=== PATIENT | male | born 1980 | race Hispanic/Latino ===

== ENCOUNTER 2018-07-14 23:20 | Emergency (ER) | payer OTHER, SELFPAY ==
--- OUTSIDE RECORDS SUMMARY | 2018-07-14 23:25 | XMS REPORT | Continuity of Care Document ---
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 suggestive of muscular hypertrophy. No adjacent inflammatory changes to suggest acute diverticulitis. Colonoscopy or enema exam may be performed for complete assessment. SL: [id number] BLOOD BANK Antibody Negative 12/03 RESULTS Scrn [facility] (12/03/17 7:06 AM) BLOOD BANK ABO/Rh A POS 12/03 RESULTS /2017 [facility] CARDIAC Troponin-I null 0.00 - 12/03 ENZYMES 0.40 /2017 [facility] ELECTROLYT AGAP 15.3 meq/L 10.0 - 12/03 ES 20.0 /2017 [facility] ELECTROLYT eGFR 100 12/03 Result Comment: The eGFR is calculated using the CKD-EPI formula. In most young, healthy individuals the eGFR will be >90 mL/ min/1.73m2. The eGFR declines with age. An eGFR of 60-89 may be normal in ES mL/min/1.7 2018 some populations, particularly the elderly, for whom the CKD-EPI formula has not been extensively validated. Use of the eGFR is not recommended in the following populations: [facility] 3m2 Individuals with unstable creatinine concentrations, including patients and those with serious co-morbid conditions. Patients with extremes in muscle mass or diet. The data above are obtained from the National Kidney Disease Education Program (NKDEP) which additionally recommends that when the eGFR is used in patients with extremes of body mass index for purposes of drug dosing, the eGFR should be multiplied by the estimated BMI. ELECTROLYT Creatinine 0.96 mg/dL 0.50 - 12/03 ES Lvl 1.40 /2018 [facility] ELECTROLYT BUN 11 mg/dL 7 - 22 12/03 ES /2017 [facility] ELECTROLYT Sodium Lvl 142 meq/L 135 - 145 / [facility] ELECTROLYT Potassium 4.3 meq/L 3.5 - 5.1 / ES Lv /2017 [facility] ELECTROLYT Chloride Lvl 107 meq/L 95 - 109 12/03 [facility] ELECTROLYT CO2 24 meq/L 24 - 32 12/03 [facility] ELECTROLYT Calcium Lvl 8.3 mg/dL 8.5 - 10.5 12/03 [facility] ELECTROLYT Glucose Lvl 92 mg/dL 70 - 99 12/03 [facility] HEMATOLOGY Hgb 14.7 g/dL 14.0 - 03 18.0 /2017 [facility] HEMATOLOGY RBC 5.14 M/CMM 4.70 - 12/03 6.10 [facility] HEMATOLOGY WBC 7.6 K/CMM 3.7 - 10.4 12/03 [facility] HEMATOLOGY RDW 13.5 % 11.5 - 12/03 14.5 [facility] HEMATOLOGY MCHC 33.7 g/dL 32.0 - 12/03 36.0 [facility] HEMATOLOGY MCH 28.7 pg 27.0 - 12/03 31.0 [facility] HEMATOLOGY Hct 43.7 % 42.0 - 12/03 54.0 [facility] HEMATOLOGY MCV 85.0 fL 80.0 - 12/03 94.0 [facility] HEMATOLOGY Platelet 197 K/CMM 133 - 450 12/03 [facility] HEMATOLOGY MPV 8.5 fL 7.4 - 10.4 12/03 [facility] HEMATOLOGY Eosinophils 0.2 K/CMM 0.0 - 0.5 12/03 # /2017 [facility] HEMATOLOGY Monocytes # 0.6 K/CMM 0.0 - 0.8 12/03 [facility] HEMATOLOGY Lymphocytes 2.1 K/CMM 1.0 - 5.5 12/03 /2017 [facility] HEMATOLOGY Segs-Bands # 4.7 K/CMM 1.5 - 8.1 12/03 [facility] HEMATOLOGY Basophils 0.6 % 0.0 - 1.0 12/03 [facility] HEMATOLOGY Monocytes 8.4 % 2.0 - 12.0 12/03 [facility] HEMATOLOGY Eosinophils 2.1 % 0.0 - 4.0 / [facility] HEMATOLOGY Segs 62.0 % 45.0 - 12/03 75.0 /2017 [facility] HEMATOLOGY Lymphocytes 26.9 % 20.0 - 12/03 40.0 /2017 [facility] Chest Chest 1view Patient Name: CARMEL RUIZ 12/03 - 1view DX DX /2017 - [facility] : 1980; Age: 37 years Male MR: [id number] Read by: Tr Strong MD Dictated Date/time: 12/03/17 08:11 Electronically Signed by: Tr Strong MD 12/03/17 08:12 FINAL REPORT Study: Chest 1view DX Order Time: 12/03/2017 7:02 AM 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 COMPARISON: August 25, 2013 FINDINGS: Views: 1 LUNGS: There is normal lung volume. There are no suspicious interstitial/ airspace opacities. There are no pleural effusions. There is no pneumothorax. The pulmonary vasculature is normal. MEDIASTINUM: The cardiac silhouette is normal. The trachea is midline. BONES: There are no clinically significant osseous abnormalities noted. IMPRESSION: No radiographic evidence of acute pulmonary disease. SL: [id number] Spine Spine Clinical Indication: - facial numbness /sp head trauma; [facility] cervical cervical - [facility] contrast CT Comparison: None contrast CT Read by: Kyle Baker MD Dictated Date/time: 12/03/17 07:56 Technique: Multi-detector CT imaging of the cervical spine is performed. Coronal and sagittal reconstructions were obtained. Electronically Signed by: Kyle Baker MD 12/03/17 07:[address] Radiation Dose DLP 767 mGy-cm FINDINGS: ALIGNMENT AND GENERAL ASSESSMENT: There is normal alignment of the cervical spine. There are no fractures or subluxations. The craniocervical junction is normal. Incomplete fusion of the posterior C1 ri ng. The atlanto-dental alignment appears unremarkable. The posterior elements and spinous processes are unremarkable. The facet joint, spinolaminar and spinous process alignment are normal. DISK SPACES AND SOFT TISSUES: The prevertebral soft tissues are normal. C2-C3 to C7-T1 disc space levels show no definite disc protrusions on CT. There is no central or foraminal stenosis. MRI is the gold standard to assess for disk disease. VISUALIZED LUNG APICES: Unremarkable. CT myelogram or MRI of the cervical spine may be performed, if there is further concern. IMPRESSION: No fractures or subluxations of the cervical spine. SL: [id number] Brain wo Brain wo Patient Name: CARMEL RUIZ 12/03 - contrast contrast CT /2017 - [facility] CT : 1980; Age: 37 years Male MR: [id number] Read by: Tr Strong MD Dictated Date/time: 12/03/17 08:04 Electronically Signed by: Tr Strong MD 12/03/17 08:11 FINAL REPORT Study: Brain wo contrast CT 12/03/2017 6:46 AM VEHICLE INSPECTOR Clinical Indication: - facial numbnes s/p head trauma. CT Radiation Dose DLP 1066 mGy-cm COMPARISON: None TECHNIQUE: CT images were obtained from the foramen magnum to the vertex without the use of intravenous contrast on a multidetector CT. Coronal and sagittal reconstructions were obtained. FINDINGS: BRAIN PARENCHYMA: There are normal rojas-white interfaces, sulci and gyri. There is no mass effect or midline shift. There is no extra-axial fluid collection, intraventricular or intraparenchymal hemorrh age. The sella and pineal regions are normal. The skull base, cerebellum and brainstem are normal. VENTRICLES: The ventricles are normal in size and configuration. The basilar cisterns are normal. ORBITS, MASTOIDS AND PARANASAL SINUSES: The visualized orbits are normal. Right mastoid sinus polyp or mucous retention cyst. The mastoid air cells are clear. SKULL: There are no osseous abnormalities. If there is further concern for intracranial pathology or acute stroke, MRI of the brain may be performed for complete assessment. IMPRESSION: Sinus disease as described above. No mass, hemorrhage or subacute stroke. SL: [id number] CHEM PANEL Alk Phos 103 unit/L 39 - 136 09/18 [facility] CHEM PANEL Albumin Lvl 3.3 g/dL 3.5 - 5.0 09/18 [facility] CHEM PANEL Total 6.8 g/dL 6.4 - 8.4 09/18 [facility] CHEM PANEL Calcium Lvl 8.3 mg/dL 8.5 - 10.5 09/18 [facility] CHEM PANEL AST 7 unit/L 0 - 37 09/18 [facility] CHEM PANEL CO2 26 meq/L 24 - 32 09/18 [facility] CHEM PANEL Chloride Lvl 105 meq/L 95 - 109 09/18 [facility] CHEM PANEL Potassium 4.1 meq/L 3.5 - 5.1 09/18 MH Lvl /2017 [facility] CHEM PANEL ALT 18 unit/L 0 - 65 09/18 [facility] CHEM PANEL Bili Total 1.7 mg/dL 0.2 - 1.3 09/18 [facility] CHEM PANEL eGFR 73 09/18 Result Comment: The eGFR is calculated using the CKD-EPI formula. In most young, healthy individuals the eGFR will be >90 mL/ min/1.73m2. The eGFR declines with age. An eGFR of 60-89 may be normal in mL/min/1.7 /2017 some populations, particularly the elderly, for whom the CKD-EPI formula has not been extensively validated. Use of the eGFR is not recommended in the following populations: [facility] 3m2 Individuals with unstable creatinine concentrations, including patients and those with serious co-morbid conditions. Patients with extremes in muscle mass or diet. The data above are obtained from the National Kidney Disease Education Program (NKDEP) which additionally recommends that when the eGFR is used in patients with extremes of body mass index for purposes of drug dosing, the eGFR should be multiplied by the estimated BMI. CHEM PANEL Glucose Lvl 106 mg/dL 70 - 99 09/18 [facility] CHEM PANEL Sodium Lvl 139 meq/L 135 - 145 09/18 [facility] CHEM PANEL Creatinine 1.24 mg/dL 0.50 - 09/18 MH Lvl 1.40 /2016 [facility] CHEM PANEL BUN 9 mg/dL 7 - 22 09/18 [facility] CHEM PANEL B/C Ratio 7 6 - 25 09/18 [facility] CHEM PANEL AGAP 12.1 meq/L 10.0 - 09/18 MH 20.0 [facility] CHEM PANEL Globulin 3.5 g/dL 2.7 - 4.2 09/18 [facility] CHEM PANEL A/G Ratio 0.9 0.7 - 1.6 09/18 [facility] HEMATOLOGY MPV 8.9 fL 7.4 - 10.4 09/18 [facility] HEMATOLOGY RDW 13.2 % 11.5 - 09/18 14. [facility] HEMATOLOGY MCHC 34.4 g/dL 32.0 - 09/18 MH 36.0 [facility] HEMATOLOGY Platelet 159 K/CMM 133 - 450 09/18 [facility] HEMATOLOGY WBC 9.3 K/CMM 3.7 - 10.4 09/18 /2016 [facility] HEMATOLOGY Hct 39.8 % 42.0 - 09/18 MH 54.0 /2016 [facility] HEMATOLOGY MCV 85.0 fL 80.0 - 09/18 MH 94.0 /2016 [facility] HEMATOLOGY RBC 4.68 M/CMM 4.70 - 09/18 MH 6.10 /2016 [facility] HEMATOLOGY Hgb 13.7 g/dL 14.0 - 09/18 MH 18.0 /2016 [facility] HEMATOLOGY MCH 29.3 pg 27.0 - 09/18 MH 31.0 /2016 [facility] HEMATOLOGY Segs 74.0 % 45.0 - 09/18 MH 75.0 /2016 [facility] HEMATOLOGY Lymphocytes 14.9 % 20.0 - 09/18 40.0 /2016 [facility] HEMATOLOGY Lymphocytes 1.4 K/CMM 1.0 - 5.5 09/18 # /2016 [facility] HEMATOLOGY Segs-Bands # 6.9 K/CMM 1.5 - 8.1 09/18 [facility] HEMATOLOGY Basophils 0.3 % 0.0 - 1.0 09/18 [facility] HEMATOLOGY Monocytes # 0.9 K/CMM 0.0 - 0.8 09/18 [facility] HEMATOLOGY Eosinophils 0.1 K/CMM 0.0 - 0.5 09/18 /2016 [facility] HEMATOLOGY Monocytes 9.6 % 2.0 - 12.0 09/18 [facility] HEMATOLOGY Eosinophils 1.2 % 0.0 - 4.0 09/18 [facility] URINE AND UA <=1.0 0.1 - 1.0 09/18 [facility] Urobilinogen mg/dL /2016 [facility] URINE AND UA Color Ltyellow 09/18 [facility] URINE AND UA Sq Epi None Seen 09/18 [facility] URINE AND UA WBC null 0 - 5 09/18 [facility] URINE AND UA Leuk Est Negative Negative 09/18 [facility] (09/17/17 6:16 PM) URINE AND UA Bili Negative Negative 09/18 [facility] *NA* (09/17/17 6:16 PM) URINE AND UA Blood Negative Negative 09/18 [facility] (09/17/17 6:16 PM) URINE AND UA RBC null 0 - 2 09/18 [facility] URINE AND UA Nitrite Negative Negative 09/18 STOOL [facility] (09/17/17 6:16 PM) URINE AND UA Protein Negative Negative 09/18 [facility] mg/dL mg/dL [facility] URINE AND UA pH 7.0 5.0 - 8.0 09/18 [facility] URINE AND UA Ketones Negative Negative 09/18 [facility] mg/dL mg/dL [facility] URINE AND UA Glucose Negative Negative 09/18 [facility] mg/dL mg/dL [facility] URINE AND UA Turbidity Clear Clear 09/18 [facility] (09/17/17 6:16 PM) URINE AND UA Spec Grav 1.010 <=1.030 09/18 [facility] VIRAL - Influ B Negative Negative 09/18 SEROLOGY [facility] (09/17/17 6:16 PM) VIRAL - Influ A Negative Negative 09/18 SEROLOGY [facility] (09/17/17 6:16 PM) CHEM PANEL Amylase Lvl 23 unit/L 25 - 115 09/17 [facility] CHEM PANEL Lipase Lvl 83 unit/L 73 - 393 09/17 [facility] ELECTROLYT AGAP 9.9 meq/L 10.0 - 09/17 ES 20.0 [facility] ELECTROLYT B/C Ratio 7 6 - 25 09/17 [facility] ELECTROLYT Globulin 3.8 g/dL 2.7 - 4.2 09/17 [facility] ELECTROLYT A/G Ratio 1.0 0.7 - 1.6 09/17 [facility] ELECTROLYT eGFR 74 09/17 Result Comment: The eGFR is calculated using the CKD-EPI formula. In most young, healthy individuals the eGFR will be >90 mL/ min/1.73m2. The eGFR declines with age. An eGFR of 60-89 may be normal in mL/min/1.7 /2017 some populations, particularly the elderly, for whom the CKD-EPI formula has not been extensively validated. Use of the eGFR is not recommended in the following populations: [facility] 3m2 Individuals with unstable creatinine concentrations, including patients and those with serious co-morbid conditions. Patients with extremes in muscle mass or diet. The data above are obtained from the National Kidney Disease Education Program (NKDEP) which additionally recommends that when the eGFR is used in patients with extremes of body mass index for purposes of drug dosing, the eGFR should be multiplied by the estimated BMI. ELECTROLYT Sodium Lvl 138 meq/L 135 - 145 09/17 ES [facility] ELECTROLYT Potassium 3.9 meq/L 3.5 - 5.1 09/17 ES Lvl /2016 [facility] ELECTROLYT Chloride Lvl 103 meq/L 95 - 109 09/17 [facility] ELECTROLYT CO2 29 meq/L 24 - 32 09/17 [facility] ELECTROLYT BUN 9 mg/dL 7 - 22 09/17 [facility] ELECTROLYT Alk Phos 124 unit/L 39 - 136 09/17 [facility] ELECTROLYT Bili Total 1.3 mg/dL 0.2 - 1.3 09/17 [facility] ELECTROLYT Creatinine 1.22 mg/dL 0.50 - 09/17 ES Lvl 1.40 [facility] ELECTROLYT Glucose Lvl 96 mg/dL 70 - 99 09/17 [facility] ELECTROLYT Albumin Lvl 3.9 g/dL 3.5 - 5.0 09/17 [facility] ELECTROLYT Calcium Lvl 8.7 mg/dL 8.5 - 10.5 09/17 [facility] ELECTROLYT AST 10 unit/L 0 - 37 09/17 ES [facility] ELECTROLYT Total 7.7 g/dL 6.4 - 8.4 09/17 [facility] ELECTROLYT ALT 25 unit/L 0 - 65 09/17 [facility] HEMATOLOGY Lymphocytes 1.9 K/CMM 1.0 - 5.5 09/17 MH # /2017 [facility] HEMATOLOGY Monocytes # 1.0 K/CMM 0.0 - 0.8 09/17 [facility] HEMATOLOGY Segs-Bands # 9.2 K/CMM 1.5 - 8.1 09/17 [facility] HEMATOLOGY Eosinophils 0.1 K/CMM 0.0 - 0.5 09/17 /2016 [facility] HEMATOLOGY Eosinophils 0.9 % 0.0 - 4.0 09/17 [facility] HEMATOLOGY Basophils 0.3 % 0.0 - 1.0 09/17 [facility] HEMATOLOGY Monocytes 7.8 % 2.0 - 12.0 09/17 [facility] HEMATOLOGY Lymphocytes 15.8 % 20.0 - 09/17 MH 40.0 /2017 [facility] Segs 75.2 % 45.0 - 09/17 75.0 /2017 [facility] RBC 5.10 M/CMM 4.70 - 09/17 MH 6.10 /2016 [facility] WBC 12.2 K/CMM 3.7 - 10.4 09/17 [facility] Hct 43.5 % 42.0 - 09/17 MH 54.0 /2016 [facility] MCH 29.4 pg 27.0 - 09/17 31.0 [facility] MCV 85.3 fL 80.0 - 09/17 94.0 [facility] Hgb 15.0 g/dL 14.0 - 09/17 18.0 [facility] RDW 13.1 % 11.5 - 09/17 14. [facility] Platelet 179 K/CMM 133 - 450 09/17 [facility] MCHC 34.5 g/dL 32.0 - 09/17 36.0 [facility] MPV 8.8 fL 7.4 - 10.4 09/17 [facility] ED ED EXAM: CT ABDOMEN AND PELVIS WITH CONTRAST 09/17 [facility] Abdomen/Pe Abdomen/Pel /2016 - [facility] IV is IV contrast contrast only CT only CT DATE: 09/17/2017 4:49 PM VEHICLE INSPECTOR Read by: Nemesio Garcia MD Dictated Date/time: 09/17/17 20:03 Electronically Signed by: Nemesio Garcia MD 09/17/17 20:09 FINAL REPORT INDICATION: Abdominal pain. COMPARISON: 12/03/2016. TECHNIQUE: Helical CT imaging of the abdomen and pelvis performed from lung bases through the lesser trochanters following the administration of intravenous contrast. Axial, sagittal and coronal multiplanar reconstructions provided. IV contrast: [address] Radiation Dose: DPM=9583.07 mGy-cm FINDINGS: LOWER CHEST: Dependent atelectatic changes are present in the lung bases. The heart is unremarkable without evidence for a pericardial effusion. LIVER: Unremarkable. GALLBLADDER/BILIARY: Unremarkable. PANCREAS: Unremarkable SPLEEN: Unremarkable ADRENALS: Unremarkable KIDNEYS AND URETERS: Unremarkable BLADDER: Unremarkable STOMACH: Unremarkable. BOWEL: The small bowel is normal in course and caliber without focal wall thickening or evidence for obstruction. Moderate wall thickening of the rectosigmoid colon with surrounding inflammatory change is noted. A background of diverticulosis is present. APPENDIX: The appendix is visualized and unremarkable. PELVIS: No pelvic masses are identified. PERITONEUM: Trace free fluid is noted the pelvis. LYMPH NODES: Unremarkable. VASCULAR: Unremarkable. OSSEOUS STRUCTURES: No acute osseous abnormality. SOFT TISSUES: Fat-containing umbilical hernia. IMPRESSION: Acute diverticulitis of the rectosigmoid colon. Trace free fluid is noted within the pelvis without evidence for a drainable abscess collection or perforation. SL: [id number] Ext Lower Ext Lower Patient Name: CARMEL RUIZ 08/22 [facility] Venous Venous /2016 Doppler Doppler : 1980; Age: 37 years y/o Male Unilat US Unilat MR: [id number] Read by: Anders Moreland MD Dictated Date/time: 08/22/17 21:16 Electronically Signed by: Anders Moreland MD 08/22/17 21:17 FINAL REPORT * LEFT LOWER EXTREMITY VENOUS DOPPLER HISTORY: Left lower extremity pain and swelling, history of of deep venous thrombosis Comparison: None TECHNIQUE: Sonographic evaluation of the left lower extremity venous system was performed from the popliteal fossa to the inguinal ligament using high resolution grayscale B-mode imaging, along with pulse (spectral) and color Doppler imaging. FINDINGS: * Left lower extremity: The left common femoral vein, superficial femoral vein, popliteal vein and visualized posterior tibial/calf veins are patent and compressible with good flow. There is good spontaneous phasic venous flow with good augmentation with calf compression. This constitutes a normal examination. IMPRESSION: Negative venous Doppler of the left lower extremity. Specifically, there is no evidence of deep venous thrombosis or venous obstruction. SL: TANIA- Tibia Tibia fibula Patient Name: CARMEL RUIZ 08/22 [facility] fibula series DX series DX : 1980; Age: 37 years y/o Male MR: [id number] Read by: Anders Moreland MD Dictated Date/time: 08/22/17 19:57 Electronically Signed by: Anders Moreland MD 08/22/17 19:58 FINAL REPORT * LEFT TIBIA -- FIBULA SERIES, 2 views History: Injury, trauma to left lower leg region - left lower extremity. Technique: Frontal and lateral radiographs of the left tibia and fibula were obtained. FINDINGS: There is no evidence of fracture, dislocation, or acute change. There are no destructive lesions or other osseous abnormalities. IMPRESSION: 1. Negative left tibia -- fibula series. SL: [id number] URINE AND UA Sq Epi None Seen 12/03 [facility] URINE AND UA <=1.0 0.1 - 1.0 12/03 [facility] Urobilinogen mg/dL [facility] URINE AND UA Blood Negative Negative 12/03 [facility] (12/03/16 9:03 AM) URINE AND UA RBC 1 /HPF 0 - 2 12/03 [facility] URINE AND UA Ketones Negative Negative 12/03 [facility] mg/dL mg/dL [facility] URINE AND UA Bili Negative Negative 12/03 [facility] *NA* (12/03/16 9:03 AM) URINE AND UA Nitrite Negative Negative 12/03 (12/03/16 9:03 AM) URINE AND UA Leuk Est Negative Negative 12/03 [facility] (12/03/16 9:03 AM) URINE AND UA Glucose Negative Negative 12/03 [facility] mg/dL mg/dL [facility] URINE AND UA pH 6.0 5.0 - 8.0 12/03 [facility] URINE AND UA Protein Negative Negative 12/03 [facility] mg/dL mg/dL [facility] URINE AND UA Color Yellow Yellow 12/03 [facility] *NA* (12/03/16 9:03 AM) URINE AND UA Turbidity Clear Clear 12/03 [facility] (12/03/16 9:03 AM) URINE AND UA Spec Grav 1.018 <=1.030 12/03 [facility] CHEM PANEL Lipase Lvl 107 unit/L 73 - 393 12/03 [facility] CHEM PANEL eGFR 76 12/03 Result Comment: The eGFR is calculated using the CKD-EPI formula. In most young, healthy individuals the eGFR will be >90 mL/ min/1.73m2. The eGFR declines with age. An eGFR of 60-89 may be normal in mL/min/1.7 some populations, particularly the elderly, for whom the CKD-EPI formula has not been extensively validated. Use of the eGFR is not recommended in the following populations: [facility] 3m2 Individuals with unstable creatinine concentrations, including patients and those with serious co-morbid conditions. Patients with extremes in muscle mass or diet. The data above are obtained from the National Kidney Disease Education Program (NKDEP) which additionally recommends that when the eGFR is used in patients with extremes of body mass index for purposes of drug dosing, the eGFR should be multiplied by the estimated BMI. CHEM PANEL Alk Phos 105 unit/L 39 - 136 12/03 [facility] CHEM PANEL AST 17 unit/L 0 - 37 12/03 [facility] CHEM PANEL CO2 25 meq/L 24 - 32 12/03 [facility] CHEM PANEL Bili Total 0.9 mg/dL 0.2 - 1.3 12/03 [facility] CHEM PANEL Sodium Lvl 142 meq/L 135 - 145 12/03 [facility] CHEM PANEL Potassium 3.9 meq/L 3.5 - 5.1 12/03 MH Lvl [facility] CHEM PANEL Creatinine 1.20 mg/dL 0.50 - 12/03 MH Lvl 1.40 /2016 [facility] CHEM PANEL Glucose Lvl 103 mg/dL 70 - 99 12/03 [facility] CHEM PANEL BUN 12 mg/dL 7 - 22 12/03 [facility] CHEM PANEL Total 7.1 g/dL 6.4 - 8.4 12/03 [facility] CHEM PANEL Albumin Lvl 3.8 g/dL 3.5 - 5.0 12/03 [facility] CHEM PANEL Chloride Lvl 106 meq/L 95 - 109 12/03 [facility] CHEM PANEL Calcium Lvl 8.8 mg/dL 8.5 - 10.5 12/03 [facility] CHEM PANEL ALT 33 unit/L 0 - 65 12/03 [facility] CHEM PANEL A/G Ratio 1.2 0.7 - 1.6 12/03 [facility] CHEM PANEL Globulin 3.3 g/dL 2.7 - 4.2 12/03 [facility] CHEM PANEL B/C Ratio 10 6 - 25 12/03 [facility] CHEM PANEL AGAP 14.9 meq/L 10.0 - 03 MH 20.0 [facility] HEMATOLOGY Monocytes # 0.5 K/CMM 0.0 - 0.8 12/03 [facility] HEMATOLOGY Basophils 0.7 % 0.0 - 1.0 12/03 [facility] [facility] H[facility] Eosinophils 1.4 % 0.0 - 4.0 12/03 [facility] Lymphocytes 1.9 K/CMM 1.0 - 5.5 03/ MH # /2017 [facility] Segs-Bands # 4.2 K/CMM 1.5 - 8.1 12/03 /2016 [facility] Eosinophils 0.1 K/CMM 0.0 - 0.5 / MH # /2017 [facility] Segs 62.0 % 45.0 - 12/03 MH 75.0 /2016 [facility] Monocytes 7.3 % 2.0 - 12.0 / /2016 [facility] Lymphocytes 28.6 % 20.0 - 12/03 MH 40.0 /2016 [facility] RBC 5.42 M/CMM 4.70 - 12/03 MH 6.10 /2016 [facility] MCH 28.5 pg 27.0 - 12/03 31.0 /2016 [facility] RDW 13.3 % 11.5 - 12/03 14.5 /2016 [facility] Hgb 15.5 g/dL 14.0 - 12/03 18.0 /2016 [facility] WBC 6.7 K/CMM 3.7 - 10.4 12/03 /2016 [facility] Hct 45.2 % 42.0 - 12/03 54.0 /2016 [facility] Platelet 180 K/CMM 133 - 450 12/03 [facility] MPV 9.1 fL 7.4 - 10.4 12/03 /2016 [facility] MCHC 34.2 g/dL 32.0 - 12/03 36.0 /2016 [facility] MCV 83.3 fL 80.0 - 12/03 94.0 /2016 [facility] ED ED Patient Name: CARMEL RUIZ 12/03 - Abdomen/Pe Abdomen/Pelv /2016 - [facility] lv IV is IV : 1980; Age: 36 years Male contrast contrast only CT only CT MR: [id number] Read by: Logan Gutierrez MD Dictated Date/time: 12/03/16 10:43 Study: ED Abdomen/Pelvis IV contrast only CT 12/03/2016 7:49 AM VEHICLE INSPECTOR Electronically Signed by: Logan Gutierrez MD 12/03/16 10 :48 FINAL REPORT CLINICAL INDICATION: Abdominal pain, acute, pt states he woke up with rlq pain and vomiting ADDITIONAL HISTORY: None COMPARISON: None TECHNIQUE: Multidetector CT imaging was performed from the diaphragm through the symphysis with multiplanar reformations obtained following the administration of IV contrast. DLP: 2218.54 mGy-cm FINDINGS: Lower thorax: Clear. Hepatobiliary: Hepatic steatosis. Unremarkable gallbladder. Pancreas: No focal mass or ductal dilatation. Spleen: No splenomegaly. Adrenals: No nodules. Kidneys: No hydronephrosis or renal stones. Pelvic organs: Unremarkable prostate and bladder. Peritoneum/Retroperitoneum: No free air or free fluid. Lymph nodes: No lymphadenopathy. Vessels: Unremarkable. Bowel: Circumferential wall thickening of the mid sigmoid. No significant perisigmoid fat stranding. Sigmoid diverticulosis. No evidence of bowel obstruction. The appendix appears unremarkable. Bones and soft tissues: Small fat-containing bilateral inguinal and umbilical hernias. No acute bony abnormalities. IMPRESSION: Circumferential wall thickening of the mid sigmoid. Given the lack of significant perisigmoid inflammation, this could be related to incomplete distention versus an early/subtle diverticulitis. Hepatic steatosis. SL: [id number] CARDIAC Troponin-I null 0.00 - 10/07 [facility] ENZYMES 0.40 [facility] CHEM PANEL Globulin 3.6 g/dL 2.7 - 4.2 10/[address] CHEM PANEL A/G Ratio 1.1 0.7 - 1.6 10/[address] CHEM PANEL AGAP 15.4 meq/L 10.0 - 10/07 [facility] 20.0 [facility] CHEM PANEL B/C Ratio 13 6 - 25 10/[address] CHEM PANEL Alk Phos 126 unit/L 39 - 136 10/[address] CHEM PANEL AST 20 unit/L 0 - 37 10/[address] CHEM PANEL Bili Total 0.4 mg/dL 0.2 - 1.3 10/[address] CHEM PANEL Total 7.5 g/dL 6.4 - 8.4 10/07 [facility] Protein [facility] CHEM PANEL Albumin Lvl 3.9 g/dL 3.5 - 5.0 10/[address] CHEM PANEL ALT 45 unit/L 0 - 65 10/[address] CHEM PANEL eGFR 77 10/07 Result Comment: The eGFR is calculated using the CKD-EPI formula. In most young, healthy individuals the eGFR will be >90 mL/ min/1.73m2. The eGFR declines with age. An eGFR of 60-89 may be normal in [facility] mL/min/1.7 some populations, particularly the elderly, for whom the CKD-EPI formula has not been extensively validated. Use of the eGFR is not recommended in the following populations: [address] Individuals with unstable creatinine concentrations, including patients and those with serious co-morbid conditions. Patients with extremes in muscle mass or diet. The data above are obtained from the National Kidney Disease Education Program (NKDEP) which additionally recommends that when the eGFR is used in patients with extremes of body mass index for purposes of drug dosing, the eGFR should be multiplied by the estimated BMI. CHEM PANEL Glucose Lvl 100 mg/dL 70 - 99 10/[address] [place] [address] CHEM PANEL BUN 15 mg/dL 7 - 22 10/[address] CHEM PANEL Chloride Lvl 101 meq/L 95 - 109 10/07 [facility] CHEM PANEL Creatinine 1.19 mg/dL 0.50 - 10/07 [facility] Lvl 1.40 [facility] CHEM PANEL CO2 27 meq/L 24 - 32 10/[address] [place] [address] CHEM PANEL Sodium Lvl 139 meq/L 135 - 145 10/[address] [place] [address] CHEM PANEL Potassium 4.4 meq/L 3.5 - 5.1 10/07 [facility] CHEM PANEL Calcium Lvl 9.0 mg/dL 8.5 - 10.5 10/07 [facility] HEMATOLOGY MCV 84.5 fL 80.0 - 10/07 94.0 [facility] HEMATOLOGY MPV 8.5 fL 7.4 - 10.4 10/[address] [place] [address] HEMATOLOGY Platelet 219 K/CMM 133 - 450 10/07 [facility] HEMATOLOGY Hct 46.6 % 42.0 - 10/07 54.0 [facility] HEMATOLOGY MCHC 34.1 g/dL 32.0 - 10/07 36.0 [facility] HEMATOLOGY RDW 13.4 % 11.5 - 10/07 14.5 [facility] HEMATOLOGY MCH 28.8 pg 27.0 - 10/07 31.0 [facility] HEMATOLOGY Hgb 15.9 g/dL 14.0 - 10/07 [place] 18.0 [facility] HEMATOLOGY WBC 7.3 K/CMM 3.7 - 10.4 10/07 [facility] HEMATOLOGY RBC 5.52 M/CMM 4.70 - 10/07 [facility] 6.10 [facility] HEMATOLOGY Monocytes # 0.6 K/CMM 0.0 - 0.8 10/07 [facility] HEMATOLOGY Eosinophils 0.2 K/CMM 0.0 - 0.5 10/07 [facility] HEMATOLOGY Lymphocytes 2.3 K/CMM 1.0 - 5.5 10/07 [facility] HEMATOLOGY Segs-Bands # 4.2 K/CMM 1.5 - 8.1 10/07 [facility] HEMATOLOGY Eosinophils 2.4 % 0.0 - 4.0 10/07 [facility] HEMATOLOGY Segs 57.4 % 45.0 - 10/07 [facility] 75.0 [facility] HEMATOLOGY Basophils 0.6 % 0.0 - 1.0 10/07 [facility] HEMATOLOGY Lymphocytes 31.6 % 20.0 - 10/07 [place] 40.0 [facility] HEMATOLOGY Monocytes 8.0 % 2.0 - 12.0 10/[address] [place] [address] Vital Signs Vital Sign Value Date Comments Source Systolic (mm Hg) 135 03/21/2018 [facility] Diastolic (mm Hg) 74 03/21/2018 [facility] Temperature Oral (F) 98.5 F 03/21/2018 [facility] Respitory Rate 18 03/21/2018 [facility] Heart Rate 74 03/21/2018 [facility] Respitory Rate 16 03/21/2018 [facility] Heart Rate 88 03/21/2018 [facility] Temperature Oral (F) 98 F 03/21/2018 [facility] Systolic (mm Hg) 121 03/21/2018 [facility] Diastolic (mm Hg) 67 03/21/2018 [facility] Temperature Oral (F) 98.8 F 03/21/2018 [facility] Heart Rate 84 03/21/2018 [facility] Systolic (mm Hg) 118 03/21/2018 [facility] Diastolic (mm Hg) 81 03/21/2018 [facility] Respitory Rate 19 03/21/2018 [facility] Systolic (mm Hg) 117 12/03/2017 [facility] Diastolic (mm Hg) 69 12/03/2017 [facility] Temperature Oral (F) 98.1 F 12/03/2017 [facility] Respitory Rate 17 12/03/2017 [facility] Respitory Rate 13 12/03/2017 [facility] Diastolic (mm Hg) 68 12/03/2017 [facility] Systolic (mm Hg) 123 12/03/2017 [facility] Temperature Oral (F) 98.1 F 12/03/2017 [facility] Respitory Rate 20 12/03/2017 [facility] Heart Rate 66 12/03/2017 [facility] Systolic (mm Hg) 132 12/03/2017 [facility] Diastolic (mm Hg) 84 12/03/2017 [facility] Temperature Oral (F) 98.4 F 09/19/2017 [facility] Systolic (mm Hg) 102 09/19/2017 [facility] Diastolic (mm Hg) 59 09/19/2017 [facility] Respitory Rate 16 09/19/2017 [facility] Heart Rate 60 09/19/2017 [facility] Temperature Oral (F) 98.4 F 09/19/2017 [facility] Systolic (mm Hg) 106 09/19/2017 [facility] Diastolic (mm Hg) 68 09/19/2017 [facility] Heart Rate 52 09/19/2017 [facility] Respitory Rate 18 09/19/2017 [facility] Systolic (mm Hg) 88 09/19/2017 [facility] Diastolic (mm Hg) 47 09/19/2017 [facility] Heart Rate 48 09/19/2017 [facility] Respitory Rate 14 09/19/2017 [facility] Temperature Oral (F) 98.0 F 09/19/2017 [facility] Weight 110 09/18/2017 [facility] BMI Calculated 33.84 09/18/2017 [facility] Height 180.3 cm 09/18/2017 [facility] Weight 110 09/17/2017 [facility] BMI Calculated 33.82 09/17/2017 [facility] Height 180.34 cm 09/17/2017 [facility] Temperature Oral (F) 98.3 F 08/23/2017 [facility] Heart Rate 72 08/23/2017 [facility] Respitory Rate 17 08/23/2017 [facility] Systolic (mm Hg) 118 08/23/2017 [facility] Diastolic (mm Hg) 64 08/23/2017 [facility] Systolic (mm Hg) 123 08/23/2017 [facility] Diastolic (mm Hg) 70 08/23/2017 [facility] Respitory Rate 18 08/23/2017 [facility] Temperature Oral (F) 98.1 F 08/23/2017 [facility] Heart Rate 70 08/23/2017 [facility] Temperature Oral (F) 98.2 F 08/23/2017 [facility] Weight 113.636 08/23/2017 [facility] Height 180.34 cm 08/23/2017 [facility] BMI Calculated 34.94 08/23/2017 [facility] Heart Rate 74 08/23/2017 [facility] Respitory Rate 18 08/23/2017 [facility] Systolic (mm Hg) 122 08/23/2017 [facility] Diastolic (mm Hg) 77 08/23/2017 [facility] Systolic (mm Hg) 118 12/03/2016 [facility] Diastolic (mm Hg) 82 12/03/2016 [facility] Respitory Rate 16 12/03/2016 [facility] Heart Rate 53 12/03/2016 [facility] Temperature Oral (F) 98.4 F 12/03/2016 [facility] Weight 112.727 12/03/2016 [facility] BMI Calculated 34.66 12/03/2016 [facility] Height 180.34 cm 12/03/2016 [facility] Temperature Oral (F) 98.5 F 12/03/2016 [facility] Respitory Rate 17 12/03/2016 [facility] Heart Rate 78 12/03/2016 [facility] Systolic (mm Hg) 118 12/03/2016 [facility] Diastolic (mm Hg) 65 12/03/2016 [facility] Respitory Rate 18 10/08/2016 [facility] Heart Rate 62 10/08/2016 [facility] Systolic (mm Hg) 118 10/08/2016 [facility] Diastolic (mm Hg) 72 10/08/2016 [facility] Temperature Oral (F) 98.2 F 10/08/2016 [facility] Heart Rate 67 10/07/2016 [facility] Temperature Oral (F) 97.4 F 10/07/2016 [facility] Respitory Rate 18 10/07/2016 [facility] Systolic (mm Hg) 124 10/07/2016 [facility] Diastolic (mm Hg) 77 10/07/2016 [facility] Encounters Location Location Encounter Encounter Reason Attending ADM DC Status Source Details Type Number For Provider Date Date [facility] [id number] Dalila Mike 10/07 10/08 [facility] [id number] Dany Bledsoe 12/03 12/03 [facility] Emergency [id number] Jaz 08/23 08/23 Oj De Leon /2016 [facility] Inpatient [id number] Subhadra 09/17 09/19 Oj Maki /2016 [facility] Emergency [id number] Chase 12/03 12/03 Oj Gregg /2017 [facility] Emergency [id number] Sawyer 03/21 03/21 Oj Dan /2017 [facility] Outpatient [id number] ASHLEY 05/05 Active [facility] Oj ORTIZ Procedures Procedure Code Date Perfomer Comments Source Vasectomy [id number] [facility]
--- OUTSIDE RECORDS SUMMARY | 2018-07-14 23:26 | XMS REPORT | Summary of Care ---
:1980 Author Organization [facility] Address [address] [place], [place] [address]- Encounter HQ Jessica(FIN) [id number] Date(s): 12/03/17 - 12/03/17 [facility] [address] [place] [address]- Encounter Diagnosis Facial paresthesia. (Discharge Diagnosis) - 12/03/17 Closed head injury (Discharge Diagnosis) - 12/03/17 Near syncope (Discharge Diagnosis) - 12/03/17 Unspecified injury of head, initial encounter (Final) - 12/09/17 Paresthesia of skin (Final) - Syncope and collapse (Final) - Anesthesia of skin (Final) - Other cause of strike by thrown, projected or falling object, initial encounter (Final) - Discharge Disposition: Home or Self Care Attending Physician: Chase Gregg MD Vital Signs Most recent to oldest [Reference 1 2 3 Range]: Temperature Oral [96.4-99.1 DegF] 98.1 DegF 98.1 DegF (12/03/17 8:35 AM) (12/03/17 6:05 AM) Blood Pressure [90-140/60-90 mmHg] 117/69 mmHg 132/84 mmHg (12/03/17 8:35 AM) (12/03/17 6:05 AM) Systolic Blood Pressure [90-140 123 mmHg mmHg] (12/03/17 6:47 AM) Diastolic Blood Pressure [60-90 68 mmHg mmHg] (12/03/17 6:47 AM) Respiratory Rate [14-20 BRMIN] 17 BRMIN 13 BRMIN 20 BRMIN (12/03/17 8:35 AM) *LOW* (12/03/17 6:05 AM) (12/03/17 6:47 AM) Peripheral Pulse Rate [60-100 bpm] 66 bpm (12/03/17 6:05 AM) Problem List Condition Effective Dates Status Health Status Informant DVT (deep venous Resolved thrombosis)(Confirmed) Allergies, Adverse Reactions, Alerts Substance Reaction Severity Status NKDA Active Medications No data available for this section Results BLOOD BANK RESULTS Most recent to oldest [Reference Range]: 1 ABO/Rh A POS *Unknown* (12/03/17 7:06 AM) Antibody Scrn Negative (12/03/17 7:06 AM) ELECTROLYTES Most recent to oldest [Reference Range]: 1 Sodium Lvl [135-145 mEq/L] 142 mEq/L (12/03/17 7:06 AM) Potassium Lvl [3.5-5.1 mEq/L] 4.3 mEq/L (12/03/17 7:06 AM) Chloride Lvl [95-109 mEq/L] 107 mEq/L (12/03/17 7:06 AM) CO2 [24-32 mEq/L] 24 mEq/L (12/03/17 7:06 AM) AGAP [10.0-20.0 mEq/L] 15.3 mEq/L (12/03/17 7:06 AM) CHEM PANEL Most recent to [Reference Range]: 1 Creatinine Lvl [0.50-1.40 mg/dL] 0.96 mg/dL (12/03/17 7:06 AM) eGFR 100 mL/min/1.73m2 1 *NA* (12/03/17 7:06 AM) BUN [7-22 mg/dL] 11 mg/dL (12/03/17 7:06 AM) Glucose Lvl [70-99 mg/dL] 92 mg/dL (12/03/17 7:06 AM) Calcium Lvl [8.5-10.5 mg/dL] 8.3 mg/dL *LOW* (12/03/17 7:06 AM) 1Result Comment: The eGFR is calculated using the CKD-EPI formula. In most young , healthy individualsthe eGFR will be >90 mL/min/1.73m2. The eGFR declines with age. An eGFR of 60-89 may be normal insome populations, particularly the elderly, for whom the CKD-EPI formula has not been extensively validated. Use of the eGFR is not recommended in the following populations: Individuals with unstable creatinine concentrations, including patients and those with serious co-morbid conditions. Patients with extremes in muscle mass or diet. The data above are obtained from the National Kidney Disease Education Program ( NKDEP) which additionally recommends that when the eGFR is used in patients with extremes of body mass index for purposesof drug dosing, the eGFR should be multiplied by the estimated BMI.CARDIAC ENZYMES Most recent to oldest [Reference Range]: 1 Troponin-I [0.00-0.40 ng/mL] <0.02 ng/mL (12/03/17 7:06 AM) HEMATOLOGY Most recent to oldest [Reference Range]: 1 WBC [3.7-10.4 K/CMM] 7.6 K/CMM (12/03/17 7:06 AM) RBC [4.70-6.10 M/CMM] 5.14 M/CMM (12/03/17 7:06 AM) Hgb [14.0-18.0 g/dL] 14.7 g/dL (12/03/17 7:06 AM) Hct [42.0-54.0 %] 43.7 % (12/03/17 7:06 AM) MCV [80.0-94.0 fL] 85.0 fL (12/03/17 7:06 AM) MCH [27.0-31.0 pg] 28.7 pg (12/03/17 7:06 AM) MCHC [32.0-36.0 g/dL] 33.7 g/dL (12/03/17 7:06 AM) RDW [11.5-14.5 %] 13.5 % (12/03/17 7:06 AM) MPV [7.4-10.4 fL] 8.5 fL (12/03/17 7:06 AM) Platelet [133-450 K/CMM] 197 K/CMM (12/03/17 7:06 AM) Segs [45.0-75.0 %] 62.0 % (12/03/17 7:06 AM) Lymphocytes [20.0-40.0 %] 26.9 % (12/03/17 7:06 AM) Monocytes [2.0-12.0 %] 8.4 % (12/03/17 7:06 AM) Eosinophils [0.0-4.0 %] 2.1 % (12/03/17 7:06 AM) Basophils [0.0-1.0 %] 0.6 % (12/03/17 7:06 AM) Segs-Bands # [1.5-8.1 K/CMM] 4.7 K/CMM (12/03/17 7:06 AM) Lymphocytes # [1.0-5.5 K/CMM] 2.1 K/CMM (12/03/17 7:06 AM) Monocytes # [0.0-0.8 K/CMM] 0.6 K/CMM (12/03/17 7:06 AM) Eosinophils # [0.0-0.5 K/CMM] 0.2 K/CMM (12/03/17 7:06 AM) Immunizations No data available for this section Procedures Procedure Date Related Diagnosis Body Site Status Vasectomy Completed Social History Social History Type Response Smoking Status Current some day smoker; Type: Cigarettes; Previous treatment: None; Ready to change: No; Concerns about tobacco use in household: No; Exposure to Tobacco Smoke None; Cigarette Smoking Last 365 Days Yes; Reg Smoking Cessation Counseling No entered on: 12/03/17 Assessment and Plan No data available for this section
--- OUTSIDE RECORDS SUMMARY | 2018-07-14 23:26 | XMS REPORT | Summary of Care ---
:1980 Author Organization [facility] Address [address] [place], [place] [address]- Encounter HQ Jessica(RUBIO) [id number] Date(s): 12/03/16 - 12/03/16 [facility] [address] [place] [address]- [phone] Discharge Diagnosis: Abdominal pain in male Discharge Disposition: Home or Self Care Attending Physician: Dany Bledsoe DO Vital Signs Most recent to oldest [Reference Range]: 1 2 Height 180.34 cm (12/03/16 7:49 AM) Temperature Oral [96.4-99.1 DegF] 98.4 DegF 98.5 DegF (12/03/16 12:27 PM) (12/03/16 7:49 AM) Blood Pressure [90-140/60-90 mmHg] 118/82 mmHg 118/65 mmHg (12/03/16 12:27 PM) (12/03/16 7:49 AM) Respiratory Rate [14-20 BRMIN] 16 BRMIN 17 BRMIN (12/03/16 12:27 PM) (12/03/16 7:49 AM) Peripheral Pulse Rate [60-100 bpm] 53 bpm 78 bpm *LOW* (12/03/16 7:49 AM) (12/03/16 12:27 PM) Weight 112.727 kg (12/03/16 7:49 AM) Body Mass Index 34.66 m2 (12/03/16 7:49 AM) Problem List Condition Effective Dates Status Health Status Informant DVT (deep venous Resolved thrombosis)(Confirmed) Allergies, Adverse Reactions, Alerts Substance Reaction Severity Status NKDA Active Medications Bentyl 20 mg oral tablet 20 mg=1 tab, PO, QID-Before Meals, PRN Abdominal Pain, # 40 tab, 0 Refill(s) Start Date: 12/03/16 Status: OrderedCipro 500 mg oral tablet 500 mg=1 tab, PO, Q12H, X 10 day, # 20 tab, 0 Refill(s) Start Date: 12/03/16 Stop Date: 12/13/16 Status: OrderedFlagyl 500 mg oral tablet 500 mg=1 tab, PO, BID, X 7 day, # 14 tab, 0 Refill(s) Start Date: 12/03/16 Stop Date: 12/10/16 Status: Orderedmorphine Sulfate 4 mg, Route: IVP, ONCE, Dosing Weight 112.727, kg, Priority: STAT, Start date: 12/03/16 10:10:00 [employer], Stop date: 12/03/16 10:10:00 [employer] Start Date: 12/03/16 Stop Date: 12/03/16 Status: Completedmorphine Sulfate 4 mg, Route: IVP, ONCE, Dosing Weight 81.818, kg, Priority: STAT, Start date: 7:49:00 [employer]ITE [employer] WORKER, Stop date: 12/03/16 7:49:00 [employer] WORKER Start Date: 12/03/16 Stop Date: 12/03/16 Status: Completedondansetron 4 mg, Route: IVP, ONCE, Dosing Weight 81.818, kg, Priority: STAT, Start date: 7:49:00 [employer]ITE [employer]UP WORKER, Stop date: 12/03/16 7:49:00 [employer]ITE [employer] WORKER Start Date: 12/03/16 Stop Date: 12/03/16 Status: CompletedSaline Flush 0.9% 10 mL, Route: IVP, Drug Form: INJ, Dosing Weight 81.818, kg, PRN, PRN Line Flush , Start date: 12/03/16 7:49:00 [employer] WORK[employer], Duration: 30 day, Stop date: 01/02/17 8:48: 00 CDT Notes: (Same as: BD Posiflush) Start Date: 12/03/16 Stop Date: 12/03/16 Status: DiscontinuedUltram 50 mg oral tablet 50 mg=1 tab, PO, Q4H, PRN pain, X 3 day, # 20 tab, 0 Refill(s) Start Date: 12/03/16 Stop Date: 12/06/16 Status: Ordered Results ELECTROLYTES Most recent to oldest [Reference Range]: 1 Sodium Lvl [135-145 mEq/L] 142 mEq/L (12/03/16 8:18 AM) Potassium Lvl [3.5-5.1 mEq/L] 3.9 mEq/L (12/03/16 8:18 AM) Chloride Lvl [95-109 mEq/L] 106 mEq/L (12/03/16 8:18 AM) CO2 [24-32 mEq/L] 25 mEq/L (12/03/16 8:18 AM) AGAP [10.0-20.0 mEq/L] 14.9 mEq/L (12/03/16 8:18 AM) CHEM PANEL Most recent to oldest [Reference Range]: 1 Creatinine Lvl [0.50-1.40 mg/dL] 1.20 mg/dL (12/03/16 8:18 AM) eGFR 76 mL/min/1.73m2 1 *NA* (12/03/16 8:18 AM) BUN [7-22 mg/dL] 12 mg/dL (12/03/16 8:18 AM) B/C Ratio [6-25] 10 (12/03/16 8:18 AM) Glucose Lvl [70-99 mg/dL] 103 mg/dL *HI* (12/03/16 8:18 AM) Total Protein [6.4-8.4 g/dL] 7.1 g/dL (12/03/16 8:18 AM) Albumin Lvl [3.5-5.0 g/dL] 3.8 g/dL (12/03/16 8:18 AM) Globulin [2.7-4.2 g/dL] 3.3 g/dL (12/03/16 8:18 AM) A/G Ratio [0.7-1.6] 1.2 (12/03/16 8:18 AM) Calcium Lvl [8.5-10.5 mg/dL] 8.8 mg/dL (12/03/16 8:18 AM) ALT [0-65 unit/L] 33 unit/L (12/03/16 8:18 AM) AST [0-37 unit/L] 17 unit/L (12/03/16 8:18 AM) Alk Phos [39-136 unit/L] 105 unit/L (12/03/16 8:18 AM) Bili Total [0.2-1.3 mg/dL] 0.9 mg/dL (12/03/16 8:18 AM) Lipase Lvl [73-393 unit/L] 107 unit/L (12/03/16 8:18 AM) 1Result Comment: The eGFR is calculated using the CKD-EPI formula. In most young , healthy individualsthe eGFR will be >90 mL/min/1.73m2. The eGFR declines with age. An eGFR of 60-89 may be normal in some populations, particularly the elderly, for whom [...] eGFR should be multiplied by the estimated BMI.URINE AND STOOL Most recent to oldest [Reference Range]: 1 UA Turbidity [Clear] Clear (12/03/16 9:03 AM) UA Color [Yellow] Yellow *NA* (12/03/16 9:03 AM) UA pH [5.0-8.0] 6.0 (12/03/16 9:03 AM) UA Spec Grav [<=1.030] 1.018 (12/03/16 9:03 AM) UA Glucose [Negative mg/dL] Negative mg/dL *NA* (12/03/16 9:03 AM) UA Blood [Negative] Negative (12/03/16 9:03 AM) UA Ketones [Negative mg/dL] Negative mg/dL *NA* (12/03/16 9:03 AM) UA Protein [Negative mg/dL] Negative mg/dL (12/03/16 9:03 AM) UA Urobilinogen [0.1-1.0 mg/dL] <=1.0 mg/dL *NA* (12/03/16 9:03 AM) UA Bili [Negative] Negative *NA* (12/03/16 9:03 AM) UA Leuk Est [Negative] Negative (12/03/16 9:03 AM) UA Nitrite [Negative] Negative (12/03/16 9:03 AM) UA RBC [0-2 /HPF] 1 /HPF (12/03/16 9:03 AM) UA Sq Epi None Seen *NA* (12/03/16 9:03 AM) HEMATOLOGY Most recent to oldest [Reference Range]: 1 WBC [3.7-10.4 K/CMM] 6.7 K/CMM (12/03/16 8:18 AM) RBC [4.70-6.10 M/CMM] 5.42 M/CMM (12/03/16 8:18 AM) Hgb [14.0-18.0 g/dL] 15.5 g/dL (12/03/16 8:18 AM) Hct [42.0-54.0 %] 45.2 % (12/03/16 8:18 AM) MCV [80.0-94.0 fL] 83.3 fL (12/03/16 8:18 AM) MCH [27.0-31.0 pg] 28.5 pg (12/03/16 8:18 AM) MCHC [32.0-36.0 g/dL] 34.2 g/dL (12/03/16 8:18 AM) RDW [11.5-14.5 %] 13.3 % (12/03/16 8:18 AM) Platelet [133-450 K/CMM] 180 K/CMM (12/03/16 8:18 AM) MPV [7.4-10.4 fL] 9.1 fL (12/03/16 8:18 AM) Segs [45.0-75.0 %] 62.0 % (12/03/16 8:18 AM) Lymphocytes [20.0-40.0 %] 28.6 % (12/03/16 8:18 AM) Monocytes [2.0-12.0 %] 7.3 % (12/03/16 8:18 AM) Eosinophils [0.0-4.0 %] 1.4 % (12/03/16 8:18 AM) Basophils [0.0-1.0 %] 0.7 % (12/03/16 8:18 AM) Segs-Bands # [1.5-8.1 K/CMM] 4.2 K/CMM (12/03/16 8:18 AM) Lymphocytes # [1.0-5.5 K/CMM] 1.9 K/CMM (12/03/16 8:18 AM) Monocytes # [0.0-0.8 K/CMM] 0.5 K/CMM (12/03/16 8:18 AM) Eosinophils # [0.0-0.5 K/CMM] 0.1 K/CMM (12/03/16 8:18 AM) Immunizations No data available for this section Procedures Procedure Date Related Diagnosis Body Site Vasectomy Social History Social History Type Response Smoking Status Current some day smoker; Type: Cigarettes; Previous treatment: None; Ready to change: No; Concerns about tobacco use in household: No; Exposure to Tobacco Smoke None; Cigarette Smoking Last 365 Days Yes; Reg Smoking Cessation Counseling No Assessment and Plan No data available for this section
--- OUTSIDE RECORDS SUMMARY | 2018-07-14 23:26 | XMS REPORT | Summary of Care ---
:1980 Author Organization [facility] Address [address] [place], [place] [address]- Encounter HQ Jessica(FIN) [id number] Date(s): 09/17/17 - 09/19/17 [facility] [address] [place] [address]- Discharge Disposition: Home or Self Care Attending Physician: Sergey Maki MD Admitting Physician: Sergey Maki MD Vital Signs Most recent to oldest 1 2 3 [Reference Range]: Height 180.3 cm 180.34 cm (09/18/17 12:00 AM) (09/17/17 4:48 PM) Current Weight 109.8 kg 110 kg (09/19/17 6:16 AM) (09/18/17 5:41 AM) Temperature Oral [96.4-99.1 98.4 DegF 98.4 DegF 98.0 DegF DegF] (09/19/17 11:44 AM) (09/19/17 7:27 AM) (09/19/17 4:01 AM) Blood Pressure 102/59 mmHg 106/68 mmHg 88/47 mmHg [90-140/60-90 mmHg] (09/19/17 11:44 AM) (09/19/17 7:27 AM) *LOW* (09/19/17 4:01 AM) Respiratory Rate [14-20 16 BRMIN 18 BRMIN 14 BRMIN BRMIN] (09/19/17 11:44 AM) (09/19/17 7:27 AM) (09/19/17 4:01 AM) Peripheral Pulse Rate 60 bpm 52 bpm 48 bpm [60-100 bpm] (09/19/17 11:44 AM) *LOW* *LOW* (09/19/17 7:27 AM) (09/19/17 4:01 AM) Weight 110 kg 110 kg (09/18/17 12:00 AM) (09/17/17 4:48 PM) Body Mass Index 33.84 m2 33.82 m2 (09/18/17 12:00 AM) (09/17/17 4:48 PM) Problem List Condition Effective Dates Status Health Status Informant DVT (deep venous Resolved thrombosis)(Confirmed) Allergies, Adverse Reactions, Alerts Substance Reaction Severity Status NKDA Active Medications acetaminophen 650 mg, 2 tab, Route: PO, Drug form: TAB, Q4H, Dosing Weight 110, kg, PRN Pain 1 -3/Temp > 100.4 F, Start date: 09/17/17 22:26:00 [employer]USH[employer] COVER INSPECTOR, Duration: 30 day, Stop date: 10/17/17 22:25:00 CUSHION COVER INSPECTOR Notes: Do not exceed 4 gm/day. (Same as: Tylenol) Start Date: 09/17/17 Stop Date: 09/19/17 Status: DiscontinuedBentyl 20 mg, 1 tab, Route: PO, Drug form: TAB, QID-Before Meals, Dosing Weight 110, kg , PRN Pain Score 1-5, Start date: 09/18/17 13:02:00 CUSHION COVER INSPECTOR, Duration: 30 day, Stop date: 10/18/17 13:01:00 CUSHION COVER INSPECTOR Notes: (Same as: Bentyl) Start Date: 09/18/17 Stop Date: 09/19/17 Status: DiscontinuedBentyl 20 mg oral tablet 20 mg=1 tab, PO, QID-Before Meals, PRN Abdominal Pain, # 40 tab, 0 Refill(s) Start Date: 09/19/17 Status: OrderedCipro 400 mg, 200 mL, Route: IV, Drug form: INJ, [id number], Dosing Weight 110, kg, Start date: 09/18/17 16:00:00 CUSHION COVER INSPECTOR, Duration: 30 day, Stop date: 10/18/17 4:00: 00 CUSHION COVER INSPECTOR, ABX Indication: Intra-abdominal Infection Notes: Do not refrigerate Start Date: 09/18/17 Stop Date: 09/19/17 Status: DiscontinuedCipro 400 mg, Route: IVPB, ONCE, Dosing Weight 110, kg, Priority: STAT, Start date: 20:22:00 CUSHION COVER INSPECTOR,Stop date: 09/17/17 20:22:00 CUSHION COVER INSPECTOR, ABX Indication: Intra- abdominal Infection Start Date: 09/17/17 Stop Date: 09/17/17 Status: CompletedCipro 500 mg oral tablet 500 mg=1 tab, PO, Q12H, X 14 day, # 28 tab, 0 Refill(s) Start Date: 09/19/17 Stop Date: 10/03/17 Status: OrderedfentaNYL 50 microgram, Route: IVP, ONCE, Dosing Weight 110, kg, Priority: STAT, Start date: 09/17/17 20:22:00CST, Stop date: 09/17/17 20:22:00 CUSHION COVER INSPECTOR Start Date: 09/17/17 Stop Date: 09/17/17 Status: CompletedFlagyl 500 mg, 100 mL, Route: IV, Drug form: INJ, ABXQ8H, Dosing Weight 110, kg, Start date: 09/18/17 16:00:00 CUSHION COVER INSPECTOR, Duration: 30 day, Stop date: 10/18/17 8:00:00 CUSHION COVER INSPECTOR, ABX Indication: Intra-abdominal Infection Notes: (Same as: Flagyl) Avoid alcohol. Start Date: 09/18/17 Stop Date: 09/19/17 Status: DiscontinuedFlagyl 500 mg, Route: IVPB, ONCE, Dosing Weight 110, kg, Priority: STAT, Start date: 20:22:00 CUSHION COVER INSPECTOR,Stop date: 09/17/17 20:22:00 CUSHION COVER INSPECTOR, ABX Indication: Intra- abdominal Infection Start Date: 09/17/17 Stop Date: 09/17/17 Status: CompletedFlagyl 500 mg oral tablet 500 mg=1 tab, PO, Q8H, X 14 day, # 42 tab, 0 Refill(s) Start Date: 09/19/17 Stop Date: 10/03/17 Status: OrderedLactated Ringers IV 1,000 mL 1,000 mL, Rate: 125 ml/hr, Infuse over: 8 hr, Route: IV, Dosing Weight 110 kg, Total Volume: 1,000, Start date: 09/17/17 22:26:00 CUSHION COVER INSPECTOR, Duration: 30 day, Stop date: 10/17/17 22:25:00 CUSHION COVER INSPECTOR, 2.37, m2 Start Date: 09/17/17 Stop Date: 09/19/17 Status: Discontinuedmorphine Sulfate 4 mg, Route: IVP, ONCE, Dosing Weight 110, kg, Priority: STAT, Start date: 09/17 18:58:00 CUSHION COVER INSPECTOR, Stop date: 09/17/17 18:58:00 CUSHION COVER INSPECTOR Start Date: 09/17/17 Stop Date: 09/17/17 Status: Completedmorphine Sulfate 2 mg, Route: IVP, Q4H, Dosing Weight 110, kg, PRN Pain Score 7-10, Start date: 09/17/17 22:26:00 CUSHION COVER INSPECTOR, Duration: 30 day, Stop date: 10/17/17 22:25:00 CUSHION COVER INSPECTOR Start Date: 09/17/17 Stop Date: 09/18/17 Status: Deletedmorphine Sulfate 4 mg, Route: IVP, ONCE, Dosing Weight 110, kg, Priority: STAT, Start date: 09/17 18:10:00 CUSHION COVER INSPECTOR, Stop date: 09/17/17 18:10:00 CUSHION COVER INSPECTOR Start Date: 09/17/17 Stop Date: 09/17/17 Status: Completedmorphine Sulfate 6 mg, 3 mL, Route: PO, Drug form: SOLN, Q4H, PRN Pain Score 7-10, Start date: 22:36:00 CUSHION COVER INSPECTOR,Duration: 30 day, Stop date: 10/17/17 22:35:00 CUSHION COVER INSPECTOR Notes: (Same as:MORPhine Sulfate) Start Date: 09/17/17 Stop Date: 09/19/17 Status: DiscontinuedNorco 5/325 oral tablet 1 tab, Route: PO, Drug Form: TAB, Dosing Weight 110, kg, Q6H, PRN Pain Score 7- 10, Start date: 09/18/17 9:52:00 CUSHION COVER INSPECTOR, Duration: 30 day, Stop date: 10/18/17 9:51 :00 CUSHION COVER INSPECTOR Notes: (Same as: [place] 325/5) Do not exceed 4gm/day of acetaminophen. Start Date: 09/18/17 Stop Date: 09/19/17 Status: DiscontinuedNS (Bolus) IV 1,000 mL, 1,000 ml/hr, Infuse Over: 1 hr, Route: IV, ONCE, Priority: STAT, Dosing Weight 110 kg, Start date: 09/17/17 18:10:00 CUSHION COVER INSPECTOR, Stop date: 09/17/17 18: 10:00 CUSHION COVER INSPECTOR Start Date: 09/17/17 Stop Date: 09/17/17 Status: Completedondansetron 4 mg, 2 mL, Route: IVP, Drug form: INJ, Q6H, Dosing Weight 110, kg, PRN Nausea & amp; Vomiting, Startdate: 09/17/17 22:26:00 CUSHION COVER INSPECTOR, Duration: 30 day, Stop date: 22:25:00 CUSHION COVER INSPECTOR Notes: (Same as: Mick) MEDICATION WASTE Product Size: 4 mgProduct Wasted: ___ mg Start Date: 09/17/17 Stop Date: 09/19/17 Status: DiscontinuedSaline Flush 0.9% 10 ml, Route: IVP, Drug Form: INJ, Dosing Weight 110, kg, PRN, PRN Line Flush, Start date: 09/17/17 22:26:00 CUSHION COVER INSPECTOR, Duration: 30 day, Stop date: 10/17/17 22:25: 00 CUSHION COVER INSPECTOR Notes: (Same as: BD Posiflush) Start Date: 09/17/17 Stop Date: 09/19/17 Status: DiscontinuedSaline Flush 0.9% 10 mL, Route: IVP, Drug Form: INJ, Dosing Weight 113.636, kg, PRN, PRN Line Flush, Start date: 09/17/17 16:49:00 CUSHION COVER INSPECTOR, Duration: 30 day, Stop date: 10/17/17 16:48:00 CUSHION COVER INSPECTOR Notes: (Same as: BD Posiflush) Start Date: 09/17/17 Stop Date: 09/19/17 Status: DiscontinuedTums 500 mg, 1 tab, Route: CHEW, Drug form: CHEWTAB, Q6H, Dosing Weight 110, kg, PRN as needed for dyspepsia, Start date: 09/18/17 9:52:00 CUSHION COVER INSPECTOR, Duration: 30 day, Stop date: 10/18/17 9:51:00 CUSHION COVER INSPECTOR Notes: (Same As: [place])Calcium Carbonate 500 bs=768 mg elemental calcium Dose=_ mg calcium carbonate ( mg elemental calcium) Start Date: 09/18/17 Stop Date: 09/19/17 Status: DiscontinuedTylenol with Codeine #3 oral tablet 1 - 2 tab, PO, Q4H, PRN Pain, X 4 day, # 36 tab, 0 Refill(s) Start Date: 09/19/17 Stop Date: 09/23/17 Status: OrderedZofran 4 mg, Route: IVP, Drug form: INJ, ONCE, Dosing Weight 110, kg, Priority: STAT, Start date: 09/17/17 18:10:00 CUSHION COVER INSPECTOR, Stop date: 09/17/17 18:10:00 CUSHION COVER INSPECTOR Start Date: 09/17/17 Stop Date: 09/17/17 Status: CompletedZosyn + Sodium Chloride 0.9% IV 100 mL 3.375 gm, Route: IVPB, ONCE, Dosing Weight 110, kg, Priority: STAT, Start date: 09/17/17 22:27:00 CUSHION COVER INSPECTOR, Stop date: 09/17/17 22:27:00 CUSHION COVER INSPECTOR, ABX Indication: Intra- abdominal Infection Notes: (Same as: Zosyn)Dosing based on Piperacillin component MEDICATION WASTE Product Size: 3375 mgProduct Wasted: ___ mg Start Date: 09/17/17 Stop Date: 09/17/17 Status: Completed Results ELECTROLYTES Most recent to oldest [Reference Range]: 1 2 Sodium Lvl [135-145 mEq/L] 139 mEq/L 138 mEq/L (09/18/17 5:36 AM) (09/17/17 5:46 PM) Potassium Lvl [3.5-5.1 mEq/L] 4.1 mEq/L 3.9 mEq/L (09/18/17 5:36 AM) (09/17/17 5:46 PM) Chloride Lvl [95-109 mEq/L] 105 mEq/L 103 mEq/L (09/18/17 5:36 AM) (09/17/17 5:46 PM) CO2 [24-32 mEq/L] 26 mEq/L 29 mEq/L (09/18/17 5:36 AM) (09/17/17 5:46 PM) AGAP [10.0-20.0 mEq/L] 12.1 mEq/L 9.9 mEq/L (09/18/17 5:36 AM) *LOW* (09/17/17 5:46 PM) CHEM PANEL Most recent to oldest [Reference Range]: 1 2 Creatinine Lvl [0.50-1.40 mg/dL] 1.24 mg/dL 1.22 mg/dL (09/18/17 5:36 AM) (09/17/17 5:46 PM) eGFR 73 mL/min/1.73m2 1 74 mL/min/1.73m2 2 *NA* *NA* (09/18/17 5:36 AM) (09/17/17 5:46 PM) BUN [7-22 mg/dL] 9 mg/dL 9 mg/dL (09/18/17 5:36 AM) (09/17/17 5:46 PM) B/C Ratio [6-25] 7 7 (09/18/17 5:36 AM) (09/17/17 5:46 PM) Glucose Lvl [70-99 mg/dL] 106 mg/dL 96 mg/dL *HI* (09/17/17 5:46 PM) (09/18/17 5:36 AM) Total Protein [6.4-8.4 g/dL] 6.8 g/dL 7.7 g/dL (09/18/17 5:36 AM) (09/17/17 5:46 PM) Albumin Lvl [3.5-5.0 g/dL] 3.3 g/dL 3.9 g/dL *LOW* (09/17/17 5:46 PM) (09/18/17 5:36 AM) Globulin [2.7-4.2 g/dL] 3.5 g/dL 3.8 g/dL (09/18/17 5:36 AM) (09/17/17 5:46 PM) A/G Ratio [0.7-1.6] 0.9 1.0 (09/18/17 5:36 AM) (09/17/17 5:46 PM) Calcium Lvl [8.5-10.5 mg/dL] 8.3 mg/dL 8.7 mg/dL *LOW* (09/17/17 5:46 PM) (09/18/17 5:36 AM) ALT [0-65 unit/L] 18 unit/L 25 unit/L (09/18/17 5:36 AM) (09/17/17 5:46 PM) AST [0-37 unit/L] 7 unit/L 10 unit/L (09/18/17 5:36 AM) (09/17/17 5:46 PM) Alk Phos [39-136 unit/L] 103 unit/L 124 unit/L (09/18/17 5:36 AM) (09/17/17 5:46 PM) Bili Total [0.2-1.3 mg/dL] 1.7 mg/dL 1.3 mg/dL *HI* (09/17/17 5:46 PM) (09/18/17 5:36 AM) Amylase Lvl [25-115 unit/L] 23 unit/L *LOW* (09/17/17 5:46 PM) Lipase Lvl [73-393 unit/L] 83 unit/L (09/17/17 5:46 PM) 1Result Comment: The eGFR is calculated using [...] eGFR should be multiplied by the estimated BMI.2Result Comment: The eGFR is calculated using the CKD-EPI formula. In most young, healthy individualsthe eGFR will be >90 mL/min/1.73m2. [...] recent to oldest [Reference Range]: 1 2 UA Turbidity [Clear] Clear (09/17/17 6:16 PM) UA Color Ltyellow *NA* (09/17/17 6:16 PM) UA pH [5.0-8.0] 7.0 (09/17/17 6:16 PM) UA Spec Grav [<=1.030] 1.010 (09/17/17 6:16 PM) UA Glucose [Negative mg/dL] Negative mg/dL *NA* (09/17/17 6:16 PM) UA Blood [Negative] Negative (09/17/17 6:16 PM) UA Ketones [Negative mg/dL] Negative mg/dL *NA* (09/17/17 6:16 PM) UA Protein [Negative mg/dL] Negative mg/dL (09/17/17 6:16 PM) UA Urobilinogen [0.1-1.0 mg/dL] <=1.0 mg/dL *NA* (09/17/17 6:16 PM) UA Bili [Negative] Negative *NA* (09/17/17 6:16 PM) UA Leuk Est [Negative] Negative (09/17/17 6:16 PM) UA Nitrite [Negative] Negative (09/17/17 6:16 PM) UA WBC [0-5 /HPF] <1 /HPF (09/17/17 6:16 PM) UA RBC [0-2 /HPF] <1 /HPF (09/17/17 6:16 PM) UA Sq Epi None Seen *NA* (09/17/17 6:16 PM) HEMATOLOGY Most recent to oldest [Reference Range]: 1 2 WBC [3.7-10.4 K/CMM] 9.3 K/CMM 12.2 K/CMM (09/18/17 5:36 AM) *HI* (09/17/17 5:46 PM) RBC [4.70-6.10 M/CMM] 4.68 M/CMM 5.10 M/CMM *LOW* (09/17/17 5:46 PM) (09/18/17 5:36 AM) Hgb [14.0-18.0 g/dL] 13.7 g/dL 15.0 g/dL *LOW* (09/17/17 5:46 PM) (09/18/17 5:36 AM) Hct [42.0-54.0 %] 39.8 % 43.5 % *LOW* (09/17/17 5:46 PM) (09/18/17 5:36 AM) MCV [80.0-94.0 fL] 85.0 fL 85.3 fL (09/18/17 5:36 AM) (09/17/17 5:46 PM) MCH [27.0-31.0 pg] 29.3 pg 29.4 pg (09/18/17 5:36 AM) (09/17/17 5:46 PM) MCHC [32.0-36.0 g/dL] 34.4 g/dL 34.5 g/dL (09/18/17 5:36 AM) (09/17/17 5:46 PM) RDW [11.5-14.5 %] 13.2 % 13.1 % (09/18/17 5:36 AM) (09/17/17 5:46 PM) Platelet [133-450 K/CMM] 159 K/CMM 179 K/CMM (09/18/17 5:36 AM) (09/17/17 5:46 PM) MPV [7.4-10.4 fL] 8.9 fL 8.8 fL (09/18/17 5:36 AM) (09/17/17 5:46 PM) Segs [45.0-75.0 %] 74.0 % 75.2 % (09/18/17 5:36 AM) *HI* (09/17/17 5:46 PM) Lymphocytes [20.0-40.0 %] 14.9 % 15.8 % *LOW* *LOW* (09/18/17 5:36 AM) (09/17/17 5:46 PM) Monocytes [2.0-12.0 %] 9.6 % 7.8 % (09/18/17 5:36 AM) (09/17/17 5:46 PM) Eosinophils [0.0-4.0 %] 1.2 % 0.9 % (09/18/17 5:36 AM) (09/17/17 5:46 PM) Basophils [0.0-1.0 %] 0.3 % 0.3 % (09/18/17 5:36 AM) (09/17/17 5:46 PM) Segs-Bands # [1.5-8.1 K/CMM] 6.9 K/CMM 9.2 K/CMM (09/18/17 5:36 AM) *HI* (09/17/17 5:46 PM) Lymphocytes # [1.0-5.5 K/CMM] 1.4 K/CMM 1.9 K/CMM (09/18/17 5:36 AM) (09/17/17 5:46 PM) Monocytes # [0.0-0.8 K/CMM] 0.9 K/CMM 1.0 K/CMM *HI* *HI* (09/18/17 5:36 AM) (09/17/17 5:46 PM) Eosinophils # [0.0-0.5 K/CMM] 0.1 K/CMM 0.1 K/CMM (09/18/17 5:36 AM) (09/17/17 5:46 PM) VIRAL - SEROLOGY Most recent to oldest [Reference Range]: 1 2 Influ A [Negative] Negative (09/17/17 6:16 PM) Influ B [Negative] Negative (09/17/17 6:16 PM) Immunizations No data available for this section Procedures Procedure Date Related Diagnosis Body Site Vasectomy Social History Social History Type Response Smoking Status Current some day smoker; Type: Cigarettes; Previous treatment: None; Ready to change: No; Concerns about tobacco use in household: No; Exposure to Tobacco Smoke None; Cigarette Smoking Last 365 Days Yes; Reg Smoking Cessation Counseling No Assessment and Plan Extracted from: Title: Clinical Document Author: Sergey Maki MD Date: 09/19/17 [id number] Extracted from: Title: Clinical Document Author: Sergey Maki MD Date: 09/19/17 Progress Daily [facility] Completed: Sep, 13:13 by Sergey Maki MD RM: 140 - 1P, SE C1A CARMEL RUIZ 37y (: 1980) M Attending: Sergey Maki MD Service: Internal Medicine Reason for Admission: ACUTE DIVERTICULITIS OF INTESTINE Working DRG: None Documented Code status: Full Code [Ordered] Current diet: Isolation: None Documented Allergies: NKDA SUBJECTIVE still c/o pain on abdomen gets worse with po intake on and had ., Had 2 small bms OBJECTIVE HEENT ELI Neck supple RS Equal AE b/l no added sounds CVS S1S2 normal no murmur P/A soft tender ness periumblical area and diffuse in lower abdomen MEDICAL RECEPTION SPECIALIST AAox3 NO FND Skin intact Ext no edema PP +ve hematoma on leg ASSESSMENT & EXAM Acute diverticulitis PLAN & TREATMENT continue iv abx and iv f if pain worse needs to go NPO Advised him stay in hospital in other 24hrs and monitor DIAGNOSES & PROBLEMS Ready for Discharge (Yes/No)? Sheets still necessary (Yes/No): Line still necessary (Yes/No): (no lab data in past 24 hours) Vitals Tmp(F) Pulse BP RR SpO2 FIO2 09/19 11:44 98.4 60 102/59 16 100 --- 09/19 07:27 98.4 52 106/68 18 99 --- 09/19 04:01 98.0 48 88/47 14 99 --- 09/18 23:26 98.2 62 108/61 15 98 --- 09/18 19:43 98.2 64 114/64 15 97 --- 24 Hr Tmax: 98.7F (37.06c) at 09/18 16:12 Vital Signs are the last 5 in the past 48 hours. Date Wt(kg) Wt(lb) Ht(cm) Ht(in) Method 09/19 109.80 241.56 Measured 09/18 110.00 242.00 180.30 70.98 Measured 09/17 (initial) 110.00 242.00 Estimated 09/17 180.34 71.00 Stated I&O Record In Out Bal 09/19 24hr Tot 1060 0 1060 09/18 24hr Tot 1560 0 1560 Medications (11) Active Scheduled Meds (2): 09/18/17 ciprofloxacin (Cipro) 400 mg IV [id number] 200 ml/hr 09/18/17 metroNIDAZOLE (Flagyl) 500 mg IV [id number] 200 ml/hr Unscheduled Meds: None PRN Meds (8): 09/18/17 acetaminophen-hydrocodone ([place] 5/325 oral tablet) 1 tab PO Q6H 09/17/17 acetaminophen 650 mg PO Q4H 09/18/17 calcium carbonate (Tums) 500 mg CHEW Q6H 09/18/17 dicyclomine (Bentyl) 20 mg PO QID-Before Meals 09/17/17 morphine Sulfate 6 mg PO Q4H 09/17/17 ondansetron 4 mg IVP Q6H 09/17/17 sodium chloride (Saline Flush 0.9%) 10 mL IVP PRN 09/17/17 sodium chloride (Saline Flush 0.9%) 10 ml IVP PRN One Time Meds: None Continuous Infusions (1): 09/17/17 Lactated Ringers Injection IV 1,000 mL (Lactated Ringers IV 1,000 mL) 1,000 mL 125 ml/hr Extracted from: Title: Clinical Document Author: Jacob Armstrong MD Date: 09/18/17 Endocrine Consult Note: Patient Room: [address] [place] [address] 37 (: 1980) Attending: Sergey Maki MD Service: Internal Medicine DATE OF CONSULT: 09/18/2017 REFERRING PHYSICIAN: CONSULTING PHYSICIAN: Dr.Syed Beard REASON FOR CONSULTATION: Abdominal pain/Doiverticulitis CHIEF COMPLAINT: I have abdominal pain HISTORY OF PRESENT ILLNESS: The patient is a 37-year-old male with past medical history of DVT of his lower extremity who presents with a 1-day history of sharp abdominal pain in his right lower quadrant, pelvic area. He denied a ny nausea and vomiting. He did have some fevers and diffuse body aches. No chest pain or shortness of breath. No bright red blood per rectum, no melena. No hematemesis.Similar symptoms in 12/[address] confirmed sigmoid diverticulitis but only tookn antibiotics for 2days due to side effects. REVIEW OF SYSTEMS: CONSTITUTIONAL: As per HPI. CARDIAC: As per HPI. GASTROINTESTINAL: As per HPI. All other systems have been reviewed and are otherwise negative. ALLERGIES: No known drug allergies. CURRENT MEDICATIONS: Per the medication reconciliation form. PAST MEDICAL HISTORY: Previous DVT. Sigmoid Diverticulitis PAST SURGICAL HISTORY: Vasectomy. SOCIAL HISTORY: He does smoke cigarettes.Denies alcohol abuse. PHYSICAL EXAMINATION: GENERAL: He is a young male in no acute distress. He is alert and oriented to person, place and time. VITAL SIGNS:Reviewed - see below HEENT: Pupils are equal and reactive to light and accommodation. Extraocular movements are intact. NECK: No JVD, no lymphadenopathy. LUNGS: Clear to auscultation bilaterally. HEART: Regular rate and rhythm. No murmurs, rubs or gallops. ABDOMEN: Soft, nondistended. He does have moderate tenderness to palpation in the suprapubic and left lower quadrant. No rebound or guarding. NEUROLOGIC: He is alert and oriented to person, place and time, has no sensory or motor deficit. LABORATORY DATA: Reviewed WBC improving CT scan of his abdomen and pelvis demonstrates acute diverticulitis of the rectosigmoid colon. There is trace free water noted within the pelvis. No evidence of any drainable abscess or perforation. ASSESSMENT AND PLAN: The patient presents with worsening left lower quadrant abdominal pain. The patient does have acute diverticulitis. Agree with Zosyn 3.375 grams IV q.8 hours. DISPOSITION: The patient wanted to go home but is convinced now for need for IV Abxs.D/W with PCP.Will need outpatien colonoscopy in 4-6 weeks. _ Allergies (1) Active Reaction NKDA None documented Medications (19) Active Scheduled Meds (2): 09/18/17 ciprofloxacin (Cipro) 400 mg IV Q12H 09/18/17 metroNIDAZOLE (Flagyl) 500 mg IV Q8H Unscheduled Meds: None PRN Meds (8): 09/18/17 acetaminophen-hydrocodone ([place] 5/325 oral tablet) 1 tab PO Q6H 09/17/17 acetaminophen 650 mg PO Q4H 09/18/17 calcium carbonate (Tums) 500 mg CHEW Q6H 09/18/17 dicyclomine (Bentyl) 20 mg PO QID-Before Meals 09/17/17 morphine Sulfate 6 mg PO Q4H 09/17/17 ondansetron 4 mg IVP Q6H 09/17/17 sodium chloride (Saline Flush 0.9%) 10 mL IVP PRN 09/17/17 sodium chloride (Saline Flush 0.9%) 10 ml IVP PRN One Time Meds (8): 09/17/17 (Completed) Sodium Chloride 0.9% IV (NS (Bolus) IV) 1,000 mL IV ONCE 1,000 ml/hr 09/17/17 (Completed) ciprofloxacin (Cipro) 400 mg IVPB ONCE 09/17/17 (Completed) fentaNYL 50 microgram IVP ONCE 09/17/17 (Completed) metroNIDAZOLE (Flagyl) 500 mg IVPB ONCE 09/17/17 (Completed) morphine Sulfate 4 mg IVP ONCE 09/17/17 (Completed) morphine Sulfate 4 mg IVP ONCE 09/17/17 (Completed) ondansetron (Zofran) 4 mg IVP ONCE 09/17/17 (Completed) piperacillin-tazobactam + Sodium Chloride 0.9% IV 100 mL (Zosyn + Sodium Chloride 0.9% IV 100 mL) 3.375 gm IVPB ONCE 25 ml/hr Continuous Infusions (1): 09/17/17 Lactated Ringers Injection IV 1,000 mL (Lactated Ringers IV 1,000 mL) 1,000 mL 125 ml/hr REVIEW OF SYSTEMS: GEN- _ EYES- _ EARS- _ NECK- _ CVS- _ RESP- _ ABD- _ - _ MSK- _ NEURO- _ PSYCH- _ HEME/LYMPH- _ SKIN- _ ENDO- _ PHYSICAL EXAMINATION: Vital Signs - Reviewed Vitals Tmp(F) Pulse BP RR SpO2 FIO2 09/18 11:28 98.8 64 102/63 17 99 --- 09/18 07:40 99.6 66 112/66 17 98 --- 09/18 03:48 99.1 64 115/69 15 97 --- 09/17 23:39 99.0 72 113/71 17 98 --- 09/17 21:52 98 85 105/75 20 100 --- 24 Hr Tmax: 99.6F (37.56c) at 09/18 07:40 Vital Signs are the last 5 in the past 48 hours. Date Wt(kg) Wt(lb) Ht(cm) Ht(in) Method 09/18 110.00 242.00 180.30 70.98 Measured 09/17 (initial) 110.00 242.00 Estimated 09/17 180.34 71.00 Stated General- _ HEENT- _ CVS- _ Chest- _ Abdomen- _ Extremities- _ Skin- _ Neuro- _ Psych- _ DATA: 24hr Labs 09/18 0536 Sodium Lvl 139 Potassium Lvl 4.1 Chloride Lvl 105 CO2 26 AGAP 12.1 Glucose Lvl 106 H Creatinine Lvl 1.24 BUN 9 B/C Ratio 7 Total Protein 6.8 Albumin Lvl 3.3 L Globulin 3.5 A/G Ratio 0.9 Calcium Lvl 8.3 L ALT 18 AST 7 Alk Phos 103 Bili Total 1.7 H eGFR 73 WBC 9.3 RBC 4.68 L Hgb 13.7 L Hct 39.8 L MCV 85.0 MCH 29.3 MCHC 34.4 RDW 13.2 Platelet 159 MPV 8.9 Segs 74.0 Monocytes 9.6 Lymphocytes 14.9 L Eosinophils 1.2 Basophils 0.3 Segs-Bands # 6.9 Lymphocytes # 1.4 Monocytes # 0.9 H Eosinophils # 0.1 09/17 1816 Influ A Negative Influ B Negative UA Color Ltyellow UA Turbidity Clear UA Spec Grav 1.010 UA pH 7.0 UA Protein Negative UA Glucose Negative UA Ketones Negative UA Bili Negative UA Blood Negative UA Urobilinogen <=1.0 UA Nitrite Negative UA Leuk Est Negative UA RBC <1 UA WBC <1 UA Sq Epi None Seen 09/17 1746 Amylase Lvl 23 L Sodium Lvl 138 Potassium Lvl 3.9 Chloride Lvl 103 CO2 29 AGAP 9.9 L Glucose Lvl 96 Creatinine Lvl 1.22 BUN 9 B/C Ratio 7 Total Protein 7.7 Albumin Lvl 3.9 Globulin 3.8 A/G Ratio 1.0 Calcium Lvl 8.7 ALT 25 AST 10 Alk Phos 124 Bili Total 1.3 eGFR 74 Lipase Lvl 83 WBC 12.2 H RBC 5.10 Hgb 15.0 Hct 43.5 MCV 85.3 MCH 29.4 MCHC 34.5 RDW 13.1 Platelet 179 MPV 8.8 Segs 75.2 H Monocytes 7.8 Lymphocytes 15.8 L Eosinophils 0.9 Basophils 0.3 Segs-Bands # 9.2 H Lymphocytes # 1.9 Monocytes # 1.0 H Eosinophils # 0.1
--- OUTSIDE RECORDS SUMMARY | 2018-07-14 23:26 | XMS REPORT | Summary of Care ---
:1980 Author Organization [facility] Address [address] [place] [address]- Encounter HQ Fifi_jose antonio(FIN) [id number] Date(s): 10/07/16 - 10/07/[address] Professional Services provided by [facility] [place] [address]- Discharge Diagnosis: DVT of lower extremity (deep venous thrombosis) Discharge Disposition: Home or Self Care Attending Physician: Dalila Mckeon MD Vital Signs Most recent to oldest [Reference Range]: 1 2 Temperature Oral [96.4-99.1 DegF] 98.2 DegF 97.4 DegF (10/07/16 6:31 PM) (10/07/16 4:25 PM) Blood Pressure [90-140/60-90 mmHg] 118/72 mmHg 124/77 mmHg (10/07/16 6:31 PM) (10/07/16 4:25 PM) Respiratory Rate [14-20 BRMIN] 18 BRMIN 18 BRMIN (10/07/16 6:31 PM) (10/07/16 4:25 PM) Peripheral Pulse Rate [60-100 bpm] 62 bpm 67 bpm (10/07/16 6:31 PM) (10/07/16 4:25 PM) Problem List No data available for this section Allergies, Adverse Reactions, Alerts Substance Reaction Severity Status NKDA Active Medications No data available for this section Results ELECTROLYTES Most recent to oldest [Reference Range]: 1 Sodium Lvl [135-145 mEq/L] 139 mEq/L (10/07/16 5:15 PM) Potassium Lvl [3.5-5.1 mEq/L] 4.4 mEq/L (10/07/16 5:15 PM) Chloride Lvl [95-109 mEq/L] 101 mEq/L (10/07/16 5:15 PM) CO2 [24-32 mEq/L] 27 mEq/L (10/07/16 5:15 PM) AGAP [10.0-20.0 mEq/L] 15.4 mEq/L (10/07/16 5:15 PM) CHEM PANEL Most recent to oldest [Reference Range]: 1 Creatinine Lvl [0.50-1.40 mg/dL] 1.19 mg/dL (10/07/16 5:15 PM) eGFR 77 mL/min/1.73m2 1 *NA* (10/07/16 5:15 PM) BUN [7-22 mg/dL] 15 mg/dL (10/07/16 5:15 PM) B/C Ratio [6-25] 13 (10/07/16 5:15 PM) Glucose Lvl [70-99 mg/dL] 100 mg/dL *HI* (10/07/16 5:15 PM) Total Protein [6.4-8.4 g/dL] 7.5 g/dL (10/07/16 5:15 PM) Albumin Lvl [3.5-5.0 g/dL] 3.9 g/dL (10/07/16 5:15 PM) Globulin [2.7-4.2 g/dL] 3.6 g/dL (10/07/16 5:15 PM) A/G Ratio [0.7-1.6] 1.1 (10/07/16 5:15 PM) Calcium Lvl [8.5-10.5 mg/dL] 9.0 mg/dL (10/07/16 5:15 PM) ALT [0-65 unit/L] 45 unit/L (10/07/16 5:15 PM) AST [0-37 unit/L] 20 unit/L (10/07/16 5:15 PM) Alk Phos [39-136 unit/L] 126 unit/L (10/07/16 5:15 PM) Bili Total [0.2-1.3 mg/dL] 0.4 mg/dL (10/07/16 5:15 PM) 1Result Comment: The eGFR is calculated [...] Range]: 1 Troponin-I [0.00-0.40 ng/mL] <0.02 ng/mL (10/07/16 5:15 PM) HEMATOLOGY Most recent to oldest [Reference Range]: 1 WBC [3.7-10.4 K/CMM] 7.3 K/CMM (10/07/16 5:15 PM) RBC [4.70-6.10 M/CMM] 5.52 M/CMM (10/07/16 5:15 PM) Hgb [14.0-18.0 g/dL] 15.9 g/dL (10/07/16 5:15 PM) Hct [42.0-54.0 %] 46.6 % (10/07/16 5:15 PM) MCV [80.0-94.0 fL] 84.5 fL (10/07/16 5:15 PM) MCH [27.0-31.0 pg] 28.8 pg (10/07/16 5:15 PM) MCHC [32.0-36.0 g/dL] 34.1 g/dL (10/07/16 5:15 PM) RDW [11.5-14.5 %] 13.4 % (10/07/16 5:15 PM) Platelet [133-450 K/CMM] 219 K/CMM (10/07/16 5:15 PM) MPV [7.4-10.4 fL] 8.5 fL (10/07/16 5:15 PM) Segs [45.0-75.0 %] 57.4 % (10/07/16 5:15 PM) Lymphocytes [20.0-40.0 %] 31.6 % (10/07/16 5:15 PM) Monocytes [2.0-12.0 %] 8.0 % (10/07/16 5:15 PM) Eosinophils [0.0-4.0 %] 2.4 % (10/07/16 5:15 PM) Basophils [0.0-1.0 %] 0.6 % (10/07/16 5:15 PM) Segs-Bands # [1.5-8.1 K/CMM] 4.2 K/CMM (10/07/16 5:15 PM) Lymphocytes # [1.0-5.5 K/CMM] 2.3 K/CMM (10/07/16 5:15 PM) Monocytes # [0.0-0.8 K/CMM] 0.6 K/CMM (10/07/16 5:15 PM) Eosinophils # [0.0-0.5 K/CMM] 0.2 K/CMM (10/07/16 5:15 PM) Immunizations No data available for this section Procedures No data available for this section Social History Social History Type Response Smoking Status Current some day smoker; Type: Cigarettes; Previous treatment: None; Ready to change: No; Concerns about tobacco use in household: No; Exposure to Tobacco Smoke None; Cigarette Smoking Last 365 Days Yes; Reg Smoking Cessation Counseling No Assessment and Plan No data available for this section
--- OUTSIDE RECORDS SUMMARY | 2018-07-14 23:26 | XMS REPORT | Summary of Care ---
:1980 Author Organization [facility] Address [address] [place], [place] [address]- Encounter HQ Jessica(FIN) [phone] Date(s): 08/22/17 - 08/22/17 [facility] [address] [place] [address]- Discharge Diagnosis: Leg pain, anterior Discharge Disposition: Home or Self Care Attending Physician: Jaz De Leon DO Vital Signs Most recent to oldest 1 2 3 [Reference Range]: Height 180.34 cm (08/22/17 7:26 PM) Temperature Oral [96.4-99.1 98.3 DegF 98.1 DegF 98.2 DegF DegF] (08/22/17 9:27 PM) (08/22/17 7:36 PM) (08/22/17 7:26 PM) Blood Pressure [90-140/60-90 118/64 mmHg 123/70 mmHg 122/77 mmHg mmHg] (08/22/17 9:27 PM) (08/22/17 7:36 PM) (08/22/17 7:26 PM) Respiratory Rate [14-20 17 BRMIN 18 BRMIN 18 BRMIN BRMIN] (08/22/17 9:27 PM) (08/22/17 7:36 PM) (08/22/17 7:26 PM) Peripheral Pulse Rate 72 bpm 70 bpm 74 bpm [60-100 bpm] (08/22/17 9:27 PM) (08/22/17 7:36 PM) (08/22/17 7:26 PM) Weight 113.636 kg (08/22/17 7:26 PM) Body Mass Index 34.94 m2 (08/22/17 7:26 PM) Problem List Condition Effective Dates Status Health Status Informant DVT (deep venous Resolved thrombosis)(Confirmed) Allergies, Adverse Reactions, Alerts Substance Reaction Severity Status NKDA Active Medications acetaminophen-hydrocodone 325 mg-10 mg oral tablet 1 tab, Route: PO, Dosing Weight 113.636, kg, ONCE, STAT, Start date: 08/22/17 19 :37:00 [employer]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
--- OUTSIDE RECORDS SUMMARY | 2018-07-14 23:26 | XMS REPORT | Summary of Care ---
:1980 Author Organization [facility] Address [address] [place], [place] [address]- Encounter HQ Jessica(FIN) [phone] Date(s): 03/20/18 - 03/21/18 [facility] [address] [place] [address]- Encounter Diagnosis Acute gastroenteritis (Discharge Diagnosis) - 03/21/18 Discharge Disposition: Home or Self Care Attending Physician: Sawyer Dan DO Vital Signs Most recent to oldest 1 2 3 [Reference Range]: Temperature Oral [96.4-99.1 98.5 DegF 98 DegF 98.8 DegF DegF] (03/21/18 3:22 AM) (03/21/18 1:01 AM) (03/20/18 8:58 PM) Blood Pressure [90-140/60-90 135/74 mmHg 121/67 mmHg 118/81 mmHg mmHg] (03/21/18 3:22 AM) (03/21/18 1:01 AM) (03/20/18 8:58 PM) Respiratory Rate [14-20 BRMIN] 18 BRMIN 16 BRMIN 19 BRMIN (03/21/18 3:22 AM) (03/21/18 1:01 AM) (03/20/18 8:58 PM) Peripheral Pulse Rate [60-100 74 bpm 88 bpm 84 bpm bpm] (03/21/18 3:22 AM) (03/21/18 1:01 AM) (03/20/18 8:58 PM) Problem List Condition Effective Dates Status Health Status Informant DVT (deep venous Resolved thrombosis)(Confirmed) Allergies, Adverse Reactions, Alerts Substance Reaction Severity Status NKDA Active Medications Bentyl 20 mg oral tablet 20 mg=1 tab, PO, QID-Before Meals, # 28 tab, 0 Refill(s) Start Date: 03/21/18 Stop Date: 03/28/18 Status: OrderedfentaNYL 50 microgram, 1 mL, Route: IVP, Drug form: INJ, ONCE, Dosing Weight 110, kg, Priority: STAT, Start date: 03/20/18 22:38:00 CDT, Stop date: 03/20/18 22:38:00 CDT Notes: (Same as: Sublimaze) Preservative free. Start Date: 03/20/18 Stop Date: 03/20/18 Status: Completedpromethazine + Sodium Chloride 0.9% IV 50 mL 12.5 mg, 0.5 mL, Route: IVPB, ONCE, Dosing Weight 110, kg, Priority: STAT, Start date: 03/20/18 22:39:00 CDT, Stop date: 03/20/18 22:39:00 CDT Notes: Do not give IV push. (Same as: Phenergan) Start Date: 03/20/18 Stop Date: 03/20/18 Status: CompletedSaline Flush 0.9% 10 mL, Route: IVP, Drug Form: INJ, Dosing Weight 110, kg, PRN, PRN Line Flush, Start date: 03/20/18 21:00:00 CDT, Duration: 30 day, Stop date: 04/19/18 20:59: 00 CDT Notes: (Same as: BD Posiflush) Start Date: 03/20/18 Stop Date: 03/21/18 Status: DiscontinuedSodium Chloride 0.9% (Bolus) IV 1,000 mL, 1000 ml/hr, Infuse Over: 1 hr, Route: IV, 1,000, Drug form: INJ, ONCE , Priority: STAT, Dosing Weight 110 kg, Start date: 03/20/18 22:39:00 CDT, Stop date: 03/20/18 22:39:00 CDT Start Date: 03/20/18 Stop Date: 03/20/18 Status: CompletedZofran ODT 4 mg oral tablet, disintegrating 4 mg=1 tab, PO, Q8H, PRN Nausea and Vomiting, Dissolve tab under tongue, # 15 tab, 0 Refill(s) Start Date: 03/21/18 Stop Date: 6/23/18 Status: Ordered Results ELECTROLYTES Most recent to oldest [Reference Range]: 1 Sodium Lvl [135-145 mEq/L] 141 mEq/L (03/20/18 10:02 PM) Potassium Lvl [3.5-5.1 mEq/L] 3.9 mEq/L (03/20/18 10:02 PM) Chloride Lvl [95-109 mEq/L] 107 mEq/L (03/20/18 10:02 PM) CO2 [24-32 mEq/L] 26 mEq/L (03/20/18 10:02 PM) AGAP [10.0-20.0 mEq/L] 11.9 mEq/L (03/20/18 10:02 PM) CHEM PANEL Most recent to oldest [Reference Range]: 1 Creatinine Lvl [0.50-1.40 mg/dL] 1.04 mg/dL (03/20/18 10:02 PM) eGFR 90 mL/min/1.73m2 1 *NA* (03/20/18 10:02 PM) BUN [7-22 mg/dL] 10 mg/dL (03/20/18 10:02 PM) B/C Ratio [6-25] 10 (03/20/18 10:02 PM) Glucose Lvl [70-99 mg/dL] 83 mg/dL (03/20/18 10:02 PM) Total Protein [6.4-8.4 g/dL] 7.6 g/dL (03/20/18 10:02 PM) Albumin Lvl [3.5-5.0 g/dL] 3.9 g/dL (03/20/18 10:02 PM) Globulin [2.7-4.2 g/dL] 3.7 g/dL (03/20/18 10:02 PM) A/G Ratio [0.7-1.6] 1.1 (03/20/18 10:02 PM) Calcium Lvl [8.5-10.5 mg/dL] 8.6 mg/dL (03/20/18 10:02 PM) ALT [0-65 unit/L] 129 unit/L *HI* (03/20/18 10:02 PM) AST [0-37 unit/L] 97 unit/L *HI* (03/20/18 10:02 PM) Alk Phos [39-136 unit/L] 182 unit/L *HI* (03/20/18 10:02 PM) Bili Total [0.2-1.3 mg/dL] 0.7 mg/dL (03/20/18 10:02 PM) Lipase Lvl [73-393 unit/L] 167 unit/L (03/20/18 10:02 PM) 1Result Comment: The eGFR is calculated [...] [Reference Range]: 1 UA Turbidity [Clear] Clear (03/20/18 9:44 PM) UA Color [Yellow] Yellow *NA* (03/20/18 9:44 PM) UA pH [5.0-8.0] 5.0 (03/20/18 9:44 PM) UA Spec Grav [<=1.030] 1.015 (03/20/18 9:44 PM) UA Glucose [Negative mg/dL] Negative mg/dL *NA* (03/20/18 9:44 PM) UA Blood [Negative] Negative (03/20/18 9:44 PM) UA Ketones [Negative mg/dL] Negative mg/dL *NA* (03/20/18 9:44 PM) UA Protein [Negative mg/dL] Negative mg/dL (03/20/18 9:44 PM) UA Urobilinogen [0.1-1.0 mg/dL] 2.0 mg/dL *HI* (03/20/18 9:44 PM) UA Bili [Negative] Negative *NA* (03/20/18 9:44 PM) UA Leuk Est [Negative] Negative (03/20/18 9:44 PM) UA Nitrite [Negative] Negative (03/20/18 9:44 PM) UA RBC [0-2 /HPF] 1 /HPF (03/20/18 9:44 PM) UA Sq Epi None Seen *NA* (03/20/18 9:44 PM) HEMATOLOGY Most recent to oldest [Reference Range]: 1 WBC [3.7-10.4 K/CMM] 6.2 K/CMM (03/20/18 10:02 PM) RBC [4.70-6.10 M/CMM] 5.46 M/CMM (03/20/18 10:02 PM) Hgb [14.0-18.0 g/dL] 15.9 g/dL (03/20/18 10:02 PM) Hct [42.0-54.0 %] 47.0 % (03/20/18 10:02 PM) MCV [80.0-94.0 fL] 86.1 fL (03/20/18 10:02 PM) MCH [27.0-31.0 pg] 29.1 pg (03/20/18 10:02 PM) MCHC [32.0-36.0 g/dL] 33.8 g/dL (03/20/18 10:02 PM) RDW [11.5-14.5 %] 13.3 % (03/20/18 10:02 PM) MPV [7.4-10.4 fL] 8.8 fL (03/20/18 10:02 PM) Platelet [133-450 K/CMM] 180 K/CMM (03/20/18 10:02 PM) Segs [45.0-75.0 %] 62.5 % (03/20/18 10:02 PM) Lymphocytes [20.0-40.0 %] 24.1 % (03/20/18 10:02 PM) Monocytes [2.0-12.0 %] 10.1 % (03/20/18 10:02 PM) Eosinophils [0.0-4.0 %] 3.0 % (03/20/18 10:02 PM) Basophils [0.0-1.0 %] 0.3 % (03/20/18 10:02 PM) Segs-Bands # [1.5-8.1 K/CMM] 3.9 K/CMM (03/20/18 10:02 PM) Lymphocytes # [1.0-5.5 K/CMM] 1.5 K/CMM (03/20/18 10:02 PM) Monocytes # [0.0-0.8 K/CMM] 0.6 K/CMM (03/20/18 10:02 PM) Eosinophils # [0.0-0.5 K/CMM] 0.2 K/CMM (03/20/18 10:02 PM) Immunizations No data available for this [...] Reg Smoking Cessation Counseling No entered on: 03/20/18 Assessment and Plan No data available for this section
[2018-07-15 00:34] LABS: Absolute Lymphocytes (CBC) 1.5 K/uL (0.7-4.9); Absolute Monocytes 0.6 K/uL (0.1-1.3); Absolute Neutrophil 5.9 K/uL (1.8-8.0); Basophils % 0.3 % (0-1.3); Eosinophils % 2.4 % (0-4.4); Hematocrit 45.3 % (39.6-49.0); Lymphocytes % 18.7 % (15.3-44.8); MCH 29.2 pg (27.0-35.0); MCV 85.7 fL (80-100); MPV 8.7 fL (7.6-11.3); Monocytes % 7.8 % (3.3-12.3); RBC Red Blood Cell Count 5.29 M/uL (4.33-5.43)
[2018-07-15 00:39] LABS: Protime INR 1.1
[2018-07-15 00:54] LABS: ALT/SGPT 20 U/L (12-78); AST/SGOT 15 U/L (15-37); Albumin 4.2 g/dL (3.4-5.0); Alkaline Phosphatase 130 U/L (45-117); BUN Blood Urea Nitrogen 11 mg/dL (7-18); Bicarbonate 26 mmol/L (21-32); Bilirubin Direct 0.3 mg/dL (0-0.2); Glucose Level 109 mg/dL (74-106); Magnesium 2.3 mg/dL (1.8-2.4); Potassium 4.3 mmol/L (3.5-5.1); Protein, Total 7.7 g/dL (6.4-8.2); Sodium Level 140 mmol/L (136-145); Troponin (Emerg Dept Use Only) < 0.02 ng/mL (0.0-0.045)
--- NOTE | 2018-07-15 03:19 | ER ---
Nurse's Notes [facility] Name: Jaxon Gutiérrez Age: 38 yrs Sex: Male : 1980 Arrival Date: 07/14/2018 Time: 23:27 Bed 5 Private MD: Diagnosis: Pain in left leg;Pain in right leg;Alcohol abuse with intoxication;Tobacco abuse counseling;Tobacco use;Cocaine abuse Presentation: 07/14 23:36 Presenting complaint: Patient states: Pain in both legs started today. No swelling or tl2 discoloration noted. Transition of care: patient was not received from another setting of care. Onset of symptoms was July 14, 2018. Risk Assessment: Do you want to hurt yourself or someone else? Patient reports no desire to harm self or others. Initial Sepsis Screen: Does the patient meet any 2 criteria? No. Patient's initial sepsis screen is negative. Does the patient have a suspected source of infection? No. Patient's initial sepsis screen is negative. Care prior to arrival: None. 23:36 Method Of Arrival: Ambulatory tl2 23:36 Acuity: RADHA 3 tl2 Triage Assessment: 23:38 General: Appears in no apparent distress. uncomfortable, Behavior is calm, cooperative, tl2 appropriate for age. Pain: Complains of pain in right leg and left leg. Neuro: Level of Consciousness is awake, alert, obeys commands, Oriented to person, place, time, situation. Cardiovascular: Denies chest pain. Respiratory: Airway is patent Respiratory effort is even, unlabored, Respiratory pattern is regular, symmetrical. GI: No signs and/or symptoms were reported involving the gastrointestinal system. : No signs and/or symptoms were reported regarding the genitourinary system. Derm: Skin is pink, warm \T\ dry. Musculoskeletal: Circulation, motion, and sensation intact. Swelling absent. Historical: - Allergies: 23:38 No Known Allergies; tl2 - Home Meds: 23:38 Eliquis oral oral [Active]; tl2 - PMHx: 23:38 DVT; tl2 - Immunization history:: Adult Immunizations up to date. - Social history:: Smoking status: Patient uses tobacco products, smokes one-half pack cigarettes per day, Patient uses alcohol, only on a social basis. street drugs, cocaine. - Ebola Screening: : No symptoms or risks identified at this time. - Family history:: not pertinent. Screenin:47 Abuse screen: Denies threats or abuse. Nutritional screening: No deficits noted. tl2 Tuberculosis screening: No symptoms or risk factors identified. Fall Risk None identified. Assessment: 23:38 General: see triage assessment. tl2 07/15 01:00 Reassessment: Patient appears in no apparent distress at this time. Patient and/or tl2 family updated on plan of care and expected duration. Pain level reassessed. Patient is alert, oriented x 3, equal unlabored respirations, skin warm/dry/pink. 02:00 Reassessment: Patient appears in no apparent distress at this time. Patient and/or tl2 family updated on plan of care and expected duration. Pain level reassessed. Patient is alert, oriented x 3, equal unlabored respirations, skin warm/dry/pink. 03:33 Reassessment: Patient appears in no apparent distress at this time. Patient and/or tl2 family updated on plan of care and expected duration. Pain level reassessed. Patient is alert, oriented x 3, equal unlabored respirations, skin warm/dry/pink. pt verbalized understanding of discharge instructions, need for follow up and prescription usage. Vital Signs: 07/14 23:38 BP 134 / 99; Pulse 86; Resp 12; Temp 98.4(O); Pulse Ox 97% on R/A; Weight 108.86 kg; tl2 Height 5 ft. 11 in. (180.34 cm); Pain 9/10; 07/15 00:53 BP 106 / 80; Pulse 69; Resp 15; Pulse Ox 97% on R/A; mt 02:01 BP 118 / 84; Pulse 70; Resp 17; Pulse Ox 100% ; tl1 03:00 BP 119 / 75; Pulse 65; Resp 18; Pulse Ox 99% ; tl2 03:37 BP 90 / 60; Pulse 67; Resp 18; Pulse Ox 100% on R/A; tl2 07/14 23:38 Body Mass Index 33.47 (108.86 kg, 180.34 cm) tl2 ED Course: 07/14 23:27 Patient arrived in ED. es 23:37 Triage completed. tl2 23:38 Arm band placed on right wrist. tl2 23:47 Patient has correct armband on for positive identification. Bed in low position. Call tl2 light in reach. Side rails up X 1. 23:51 Velasquez Palafox MD is Attending Physician. [facility] 07/15 00:16 Inserted saline lock: 18 gauge in right antecubital area, using aseptic technique. nm Blood collected. 00:28 X-ray completed. Portable x-ray completed in exam room. Patient tolerated procedure ag1 well. 00:29 XRAY Chest (1 view) In Process Unspecified. EDMS 03:04 US Extremity Venous W Compression Tone In Process Unspecified. EDMS 03:37 No provider procedures requiring assistance completed. IV discontinued, intact, tl2 bleeding controlled, No redness/swelling at site. Pressure dressing applied. Administered Medications: No medications were administered Outcome: 03:18 Discharge ordered by . [facility] 03:37 Discharged to home ambulatory. tl2 03:37 Condition: stable 03:37 Discharge instructions given to patient, Instructed on discharge instructions, follow up and referral plans. Demonstrated understanding of instructions, follow-up care. 03:38 Patient left the ED. tl2 Signatures: Dispatcher [employer] Velasquez Vasques MD MD cha Salyer, Edna es Lasagna, Tonya, RN RN tl1 Noemí Campbell 1 Camille Dumont RN RN tl2 Adele Marin nm
--- NOTE | 2018-07-15 03:19 | EDPHYS ---
Physician Documentation [facility] Name: Jaxon Gutiérrez Age: 38 yrs Sex: Male : 1980 Arrival Date: 07/14/2018 Time: 23:27 Bed 5 Private MD: ED Physician Velasquez Palafox HPI: 07/15 00:03 This 38 yrs old Male presents to ER via Ambulatory with complaints of Leg Pain.elayne 00:03 The patient presents with pain, swelling. The complaints affect the right leg and left elayne leg. Context: The problem was sustained at home, resulted from an unknown cause. Onset: The symptoms/episode began/occurred 1 day(s) ago. Modifying factors: The symptoms are alleviated by nothing. the symptoms are aggravated by movement. Associated signs and symptoms: The patient has no apparent associated signs or symptoms. Treatment prior to arrival includes: no previous treatment. Severity of symptoms: At their worst the symptoms were mild, in the emergency department the symptoms are unchanged. The patient has experienced similar episodes in the past, a few times. Historical: - Allergies: 07/14 23:38 No Known Allergies; tl2 - Home Meds: 23:38 Eliquis oral oral [Active]; tl2 - PMHx: 23:38 DVT; tl2 - Immunization history:: Adult Immunizations up to date. - Social history:: Smoking status: Patient uses tobacco products, smokes one-half pack cigarettes per day, Patient uses alcohol, only on a social basis. street drugs, cocaine. - Ebola Screening: : No symptoms or risks identified at this time. - Family history:: not pertinent. ROS: 07/15 00:03 Constitutional: Negative for fever, chills, and weight loss, Eyes: Negative for injury, elayne pain, redness, and discharge, ENT: Negative for injury, pain, and discharge, Neck: Negative for injury, pain, and swelling, Cardiovascular: Negative for chest pain, palpitations, and edema, Respiratory: Negative for shortness of breath, cough, wheezing, and pleuritic chest pain, Abdomen/GI: Negative for abdominal pain, nausea, vomiting, diarrhea, and constipation, Back: Negative for injury and pain, : Negative for injury, bleeding, discharge, and swelling, Skin: Negative for injury, rash, and discoloration, Neuro: Negative for headache, weakness, numbness, tingling, and seizure, Psych: Negative for depression, anxiety, suicide ideation, homicidal ideation, and hallucinations, Allergy/Immunology: Negative for hives, rash, and allergies, Endocrine: Negative for neck swelling, polydipsia, polyuria, polyphagia, and marked weight changes, Hematologic/Lymphatic: Negative for swollen nodes, abnormal bleeding, and unusual bruising. MS/extremity: Positive for decreased range of motion, pain, of the right leg and left leg. Exam: 00:03 Constitutional: This is a well developed, well nourished patient who is awake, alert, elayne and in no acute distress. Head/Face: Normocephalic, atraumatic. Eyes: Pupils equal round and reactive to light, extra-ocular motions intact. Lids and lashes normal. Conjunctiva and sclera are non-icteric and not injected. Cornea within normal limits. Periorbital areas with no swelling, redness, or edema. ENT: Nares patent. No nasal discharge, no septal abnormalities noted. Tympanic membranes are normal and external auditory canals are clear. Oropharynx with no redness, swelling, or masses, exudates, or evidence of obstruction, uvula midline. Mucous membranes moist. Neck: Trachea midline, no thyromegaly or masses palpated, and no cervical lymphadenopathy. Supple, full range of motion without nuchal rigidity, or vertebral point tenderness. No Meningismus. Chest/axilla: Normal chest wall appearance and motion. Nontender with no deformity. No lesions are appreciated. Cardiovascular: Regular rate and rhythm with a normal S1 and S2. No gallops, murmurs, or rubs. Normal PMI, no JVD. No pulse deficits. Respiratory: Lungs have equal breath sounds bilaterally, clear to auscultation and percussion. No rales, rhonchi or wheezes noted. No increased work of breathing, no retractions or nasal flaring. Abdomen/GI: Soft, non-tender, with normal bowel sounds. No distension or tympany. No guarding or rebound. No evidence of tenderness throughout. Back: No spinal tenderness. No costovertebral tenderness. Full range of motion. Male : Normal genitalia with no discharge or lesions. Skin: Warm, dry with normal turgor. Normal color with no rashes, no lesions, and no evidence of cellulitis. MS/ Extremity: Pulses equal, no cyanosis. Neurovascular intact. Full, normal range of motion. Neuro: Awake and alert, GCS 15, oriented to person, place, time, and situation. Cranial nerves II-XII grossly intact. Motor strength 5/5 in all extremities. Sensory grossly intact. Cerebellar exam normal. Normal gait. Psych: Awake, alert, with orientation to person, place and time. Behavior, mood, and affect are within normal limits. 00:03 Musculoskeletal/extremity: DVT Exam: No signs of deep vein thrombosis. no pain, no swelling, no tenderness, negative Homans' sign noted on exam, no appreciated bluish discoloration, no erythema, no increased warmth. Vital Signs: 07/14 23:38 BP 134 / 99; Pulse 86; Resp 12; Temp 98.4(O); Pulse Ox 97% on R/A; Weight 108.86 kg; tl2 Height 5 ft. 11 in. (180.34 cm); Pain 9/10; 07/15 00:53 BP 106 / 80; Pulse 69; Resp 15; Pulse Ox 97% on R/A; mt 02:01 BP 118 / 84; Pulse 70; Resp 17; Pulse Ox 100% ; tl1 03:00 BP 119 / 75; Pulse 65; Resp 18; Pulse Ox 99% ; tl2 03:37 BP 90 / 60; Pulse 67; Resp 18; Pulse Ox 100% on R/A; tl2 07/14 23:38 Body Mass Index 33.47 (108.86 kg, 180.34 cm) tl2 MDM: 07/14 23:51 Patient medically screened. [facility] 07/15 00:05 Data reviewed: vital signs, nurses notes, lab test result(s), EKG, radiologic studies, elayne doppler, plain films. 07/15 00:03 Order name: Basic Metabolic Panel; Complete Time: 01:08 elayne 07/15 00:03 Order name: CBC with Diff; Complete Time: : [facility] 07/15 00:03 Order name: LFT's; Complete Time: : [facility] 07/15 00:03 Order name: Magnesium; Complete Time: : [facility] 07/15 00:03 Order name: PT-INR; Complete Time: 01:08 [facility] 07/15 00:03 Order name: Troponin (emerg Dept Use Only); Complete Time: 01: [facility] 07/15 00:03 Order name: XRAY Chest (1 view) [facility] 07/15 00:03 Order name: EKG; Complete Time: 00:04 [facility] 07/15 00:03 Order name: Cardiac monitoring; Complete Time: : [facility] 07/15 00:03 Order name: EKG - Nurse/Tech; Complete Time: 00:29 [facility] 07/15 00:03 Order name: IV Saline Lock; Complete Time: 00: [facility] 07/15 00:03 Order name: Labs collected and sent; Complete Time: : [facility] 07/15 00:03 Order name: O2 Per Protocol; Complete Time: : [facility] 07/15 00:03 Order name: US Extremity Venous W Compression Tone [facility] 07/15 00: Order name: O2 Sat Monitoring; Complete Time: [facility] Administered Medications: No medications were administered Disposition: 07/15/18 03:18 Discharged to Home. Impression: Pain in left leg, Pain in right leg, Alcohol abuse with intoxication, Tobacco abuse counseling, Tobacco use, Cocaine abuse. - Condition is Fair. - Discharge Instructions: Stimulant Use Disorder-Cocaine, Musculoskeletal Pain, Pain Without a Known Cause, Alcohol Intoxication, [id number], Alcohol Abuse and Nutrition, Steps to Quit Smoking, [id number]. - Medication Reconciliation Form, Thank You Letter, Antibiotic Education, Prescription Opioid Use, Work release form form. - Follow up: Private Physician; When: 2 - 3 days; Reason: Recheck today's complaints, Continuance of care, Re-evaluation by your physician. - Problem is new. - Symptoms have improved. Signatures: Dispatcher [employer] EDRI Velasquez Palafox MD MD cha Knox, Taylor, RN RN tl2 Corrections: (The following items were deleted from the chart) 03:38 03:18 07/15/2018 03:18 Discharged to Home. Impression: Pain in left leg; Pain in right tl2 leg; Alcohol abuse with intoxication; Tobacco abuse counseling; Tobacco use; Cocaine abuse. Condition is Fair. Discharge Instructions: Musculoskeletal Pain, Pain Without a Known Cause, Stimulant Use Disorder-Cocaine, Alcohol Intoxication, [id number], Alcohol Abuse and Nutrition, Steps to Quit Smoking, [id number]. Forms are Medication Reconciliation Form, Thank You Letter, Antibiotic Education, Prescription Opioid Use. Follow up: Private Physician; When: 2 - 3 days; Reason: Recheck today's complaints, Continuance of care, Re-evaluation by your physician. Problem is new. Symptoms have improved. elayne
--- NOTE | 2018-07-15 07:58 | RAD REPORT ---
EXAM DESCRIPTION: RAD - Chest Single View - 07/15/2018 12:31 am CLINICAL HISTORY: Cough COMPARISON: None. TECHNIQUE: AP portable chest image was obtained 0018 hours . FINDINGS: Lungs are clear. Heart and vasculature are normal. No measurable pleural effusion and no p neumothorax. No acute bony abnormality seen. No acute aortic findings suspected. IMPRESSION: No acute cardiopulmonary process.
--- NOTE | 2018-07-15 08:06 | RAD REPORT ---
EXAM DESCRIPTION: US - Extrem Venous W Compress Tone - 07/15/2018 3:03 am CLINICAL HISTORY: Leg pain and swelling COMPARISON: None. TECHNIQUE: Real-time sonographic evaluation of the bilateral lower extremity common femoral, superfi cial femoral, popliteal and posterior tibial veins was performed. FINDINGS: Normal compressibility, flow augmentation, phasic flow and spontaneous flow are identified in the left and right lower extremity common femoral, superficial femoral, popliteal and posterior t ibial veins. No intraluminal filling defects seen. IMPRESSION: No DVT in either lower extremity.
--- NOTE | 2018-07-15 08:12 | EKG ---
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
== END 2018-07-15 03:38 | disposition home or self-care (01) ==
LOC: ER 23:20
DX: M79.604 Pain in right leg (principal); F10.129 Alcohol abuse with intoxication, unspecified; F14.10 Cocaine abuse, uncomplicated; Z72.0 Tobacco use; Z71.6 Tobacco abuse counseling; Z79.01 Long term (current) use of anticoagulants; Z86.718 Personal history of other venous thrombosis and embolism
CPT/HCPCS: 36415; 71045; 80048; 80076; 83735; 84484; 85025; 85610; 93005; 93970; 99284